=== PATIENT | female | born 1950 | race Caucasian/White ===

== ENCOUNTER 2020-11-05 13:49 | Emergency (ER) | payer MEDICARE, SELFPAY ==
[2020-11-05 14:00] VITALS: BP 154/81; PULSE 80; RESP 20; TEMP 36.4; O2SAT 96
--- NOTE | 2020-11-05 14:37 | ED.GENADULT ---
HPI - General Adult General Chief complaint: Urogenital-Female Stated complaint: Possible UTI Time Seen by Provider: 11/05/20 14:37 Source: patient and RN notes reviewed Mode of arrival: ambulatory Limitations: no limitations History of Present Illness HPI narrative: 70-year-old female presents with urinary complaints for the past 2 days. ?Claritza reports traveling from [place] with several incontinent episodes during car ride due to increasing urinary symptoms. ?Dysuria consists of burning, frequency, and urgency. ?Azo was taken last today at 10:30 without relief. ?Denies fever. ?No significant pelvic pain. ?No vaginal discharge.? No concerns for STDs. Exacerbating factors urinating.? Denies hematuria or vaginal bleeding. ?No flank pain. ?Denies nausea, vomiting, and abdominal pain.? Tolerating liquids well.? Remains active. ?The patient reports she has not been diagnosed with COVID-19. The patient reports she received 2 Pfizer COVID-19 vaccines. The patient reports she is not waiting for the results of a COVID-19 lab test. ?The patient reports he does not have chills, weakness, or fatigue. The patient reports he does not have a new or worsening cough or shortness of breath. ?Denies chest pain. ?The patient reports he does not have any rhinorrhea, congestion, loss of taste or smell, sore throat, and diarrhea. ?Denies recent traveling. ?Denies concerns for COVID-19 or exposures. ?At this time, the patient is not suspected of having COVID-19. ? Some parts of this dictation were generated by voice recognition software and may contain typographical and/or grammatical inaccuracies. Related Data Home Medications Medication Instructions Recorded Confirmed albuterol 90 mcg INHALATION PRN PRN 11/05/20 11/05/20 atorvastatin 40 mg PO DAILY 11/05/20 11/05/20 citalopram 20 mg PO DAILY 11/05/20 11/05/20 fluticasone propionate [Flovent 1 puff INHALATION Q12H 11/05/20 11/05/20 HFA] hydrocodone-acetaminophen 1 tablet PO Q6H PRN 11/05/20 11/05/20 levothyroxine [Synthroid] 112 mcg PO DAILY 11/05/20 11/05/20 lisinopril 10 mg PO DAILY 11/05/20 11/05/20 oxybutynin chloride 5 mg PO DAILY 11/05/20 11/05/20 Allergies Allergy/AdvReac Type Severity Reaction Status Date / Time Sulfa (Sulfonamide Allergy Unknown Verified 11/05/20 14:15 Antibiotics) Review of Systems Review of Systems: Narrative: CONSTITUTIONAL: Denies fever, chills, sweats. EYES: Denies visual changes, redness, discharge. ENT: Denies rhinorrhea, congestion, sore throat, otalgia. CARDIOVASCULAR: Denies chest pain, palpitations, edema. RESPIRATORY: Denies dyspnea, wheezing, cough. GASTROINTESTINAL: Denies abdominal pain, nausea, vomiting, diarrhea. GENITOURINARY: Complains of dysuria (burning, frequency, and urgency). Denies hematuria, abnormal discharge. SKIN: Denies rash or itching. MUSCULOSKELETAL: Denies acute back pain, joint pain, or myalgia. NEUROLOGIC: Denies numbness or focal weakness. PSYCHIATRIC: Denies anxiety or depression. All systems reviewed & are unremarkable except as noted in HPI and below. [facility] Past Medical History Medical History (Updated 11/06/20 @ 00:00 by [facility] [place]) Asthma Hard of hearing Hip fracture, right Hypothyroidism Obesity Surgical History Surgical History (Updated 11/05/20 @ 15:01 by DEANA Go) History of cholecystectomy History of knee surgery Bilateral total knee Hx of CABG Family History Family History (Updated 11/05/20 @ 15:02 by DEANA Go) Father Unknown family medical history Mother Alzheimers disease Social History Social History (Updated 11/05/20 @ 15:03 by DEANA Go) Smoking status: Former smoker Tobacco type: cigarettes Second hand tobacco smoke exposure: No Smoking end date: 05/25/90 Alcohol intake: current Substance use: never Substance use type: does not use Living arrangements: with family Occupation/Education: re
== END 2020-11-05 15:09 | disposition home or self-care (01) ==
PROVIDERS: Emergency Provider Nurse Practitioner Family
DX: R30.0 Dysuria (principal); Z87.891 Personal history of nicotine dependence; J45.909 Unspecified asthma, uncomplicated; E03.9 Hypothyroidism, unspecified; E66.9 Obesity, unspecified; Z68.41 Body mass index [BMI] 40.0-44.9, adult
CPT/HCPCS: 81003; 87077; 87086; 87186; 99213; G0463

== ENCOUNTER 2021-12-18 16:28 | Emergency (ER) | payer MEDICARE, SELFPAY ==
[2021-12-18 16:34] VITALS: BP 140/42; PULSE 75; RESP 16; TEMP 36.6; O2SAT 99
--- NOTE | 2021-12-18 16:58 | ED.FEMALEGU ---
HPI - Female Genitourinary General Chief complaint: Urogenital-Female Stated complaint: Urinary Problem Time Seen by Provider: 12/18/21 16:58 Source: patient Mode of arrival: ambulatory Limitations: no limitations History of Present Illness HPI Narrative: 71 yo F presents with c/o urinary frequency, urgency, dysuria off and on for 3 wks. Pt is here visiting from out of town. No fever/chills. +fatigue. States urine has strong odor. hx of frequent UTI. Has not been on abx for about 3 months. Denies N//v/d. No ABD or back pain. All systems reviewed and negative except as noted above. Related Data Home Medications Medication Instructions Recorded Confirmed atorvastatin 40 mg tablet 80 mg PO DAILY 11/05/20 12/18/21 citalopram 20 mg tablet 20 mg PO DAILY 11/05/20 12/18/21 hydrocodone 7.5 mg-acetaminophen 1 tablet PO Q6H PRN Back Pain 11/05/20 12/18/21 325 mg tablet levothyroxine 112 mcg tablet 200 mcg PO DAILY 11/05/20 12/18/21 (Synthroid) conjugated estrogens 0.625 mg/gram 0.625 mg vaginal DAILY 12/18/21 12/18/21 vaginal cream (Premarin) gabapentin 300 mg capsule 300 mg PO BID 12/18/21 12/18/21 gabapentin 600 mg tablet 600 mg PO HS 12/18/21 12/18/21 lisinopril 10 1 tablet PO DAILY 12/18/21 12/18/21 mg-hydrochlorothiazide 12.5 mg tablet mirabegron 50 mg tablet,extended 50 mg PO DAILY 12/18/21 12/18/21 release 24 hr (Myrbetriq) omeprazole 20 mg capsule,delayed 20 mg PO DAILY 12/18/21 12/18/21 release Allergies Allergy/AdvReac Type Severity Reaction Status Date / Time Sulfa (Sulfonamide Allergy Unknown Verified 12/18/21 16:46 Antibiotics) Review of Systems Review of Systems: CONSTITUTIONAL: Denies fever, chills, or sweats. EYES: Denies visual changes, redness, or discharge. ENT: Denies rhinorrhea, congestion, sore throat, or otalgia. CARDIOVASCULAR: Denies chest pain, palpitations, or edema. RESPIRATORY: Denies cough or dyspnea. GASTROINTESTINAL: Denies abdominal pain, nausea, vomiting, or diarrhea. GENITOURINARY: Reports frequency, urgency dysuria. Denies hematuria. SKIN: Denies rash or itching. MUSCULOSKELETAL: Denies back pain, joint pain, or myalgia. NEUROLOGIC: Denies headache, numbness, or weakness. PSYCHIATRIC: Denies anxiety or depression. All other systems reviewed are negative, except as documented in HPI. [facility] Past Medical History Medical History (Updated 12/18/21 @ 17:10 by Amanda Vera NP) Asthma Hard of hearing Hip fracture, right Hypothyroidism Obesity Surgical History Surgical History (Updated 11/05/20 @ 15:01 by DEANA Go) History of cholecystectomy History of knee surgery Bilateral total knee Hx of CABG Family History Family History (Updated 11/05/20 @ 15:02 by DEANA Go) Father Unknown family medical history Mother Alzheimers disease Social History Social History (Updated 11/05/20 @ 15:03 by DEANA Go) Smoking status: Former smoker Tobacco type: cigarettes Second hand tobacco smoke exposure: No Smoking end date: 05/25/90 Alcohol intake: current Substance use: never Substance use type: does not use Gender identity (if verbalized by the patient): Female Sexual Orientation (if Verbalized by the Patient): Straight or Heterosexual Comments At time of signature, agree with nursing past medical, surgical, social and family history. There is no relevant family history pertinent to the presenting complaint. Exam Narrative: GENERAL: This is a well-nourished, well-developed patient, in no apparent distress. HEAD: normocephalic, atraumatic. EYES: PERRL. Sclera clear/white. Vision is grossly intact. EARS: External ears normal NOSE: External nose normal NECK: Neck supple, non-tender without lymphadenopathy, masses or thyromegaly. CARDIOVASCULAR: Regular rate and rhythm without murmurs, gallops, or rubs. RESPIRATORY: Clear to auscultation. Breath sounds equal bila
== END 2021-12-18 17:11 | disposition home or self-care (01) ==
PROVIDERS: Emergency Provider Nurse Practitioner Family
DX: N39.0 Urinary tract infection, site not specified (principal); Z87.891 Personal history of nicotine dependence; J45.909 Unspecified asthma, uncomplicated; E03.9 Hypothyroidism, unspecified; E66.9 Obesity, unspecified; Z68.38 Body mass index [BMI] 38.0-38.9, adult; Z95.1 Presence of aortocoronary bypass graft
CPT/HCPCS: 81003; 87077; 87086; 87186; 99213; G0463

== ENCOUNTER 2022-05-01 16:25 | Emergency (ER) | payer MEDICARE, SELFPAY ==
[2022-05-01 16:30] VITALS: BP 155/68; PULSE 74; RESP 20; TEMP 36.4; O2SAT 98
--- NOTE | 2022-05-01 16:32 | ED.FEMALEGU ---
HPI - Female Genitourinary General Chief complaint: Urogenital-Female Stated complaint: Urinary Problem Time Seen by Provider: 05/01/22 16:33 Source: patient and RN notes reviewed History of Present Illness HPI Narrative: patient is a 71-year-old female who presents to the Urgent Care with complaints of a lot of pressure and dysuria. Patient states that she was treated for UTI on April 20 with cephalexin in [place] and did not finish the medication. Patient states that she forgot it walk all when she came to [place]. Patient denies any fevers, nausea, vomiting. Denies any abdominal pain. Patient has been taking azo for the last several days. No other acute complaints. Patient aware of the plan of care. Some parts of this dictation were generated by voice recognition software and may contain typographical and/or grammatical inaccuracies. Related Data Home Medications Medication Instructions Recorded Confirmed atorvastatin 40 mg tablet 80 mg PO DAILY 11/05/20 12/18/21 citalopram 20 mg tablet 20 mg PO DAILY 11/05/20 12/18/21 hydrocodone 7.5 mg-acetaminophen 1 tablet PO Q6H PRN Back Pain 11/05/20 12/18/21 325 mg tablet levothyroxine 112 mcg tablet 200 mcg PO DAILY 11/05/20 12/18/21 (Synthroid) conjugated estrogens 0.625 mg/gram 0.625 mg vaginal DAILY 12/18/21 12/18/21 vaginal cream (Premarin) gabapentin 300 mg capsule 300 mg PO BID 12/18/21 12/18/21 gabapentin 600 mg tablet 600 mg PO HS 12/18/21 12/18/21 lisinopril 10 1 tablet PO DAILY 12/18/21 12/18/21 mg-hydrochlorothiazide 12.5 mg tablet mirabegron 50 mg tablet,extended 50 mg PO DAILY 12/18/21 12/18/21 release 24 hr (Myrbetriq) omeprazole 20 mg capsule,delayed 20 mg PO DAILY 12/18/21 12/18/21 release albuterol sulfate 90 mcg/actuation inhalation 05/01/22 aerosol inhaler Allergies Allergy/AdvReac Type Severity Reaction Status Date / Time Sulfa (Sulfonamide Allergy Unknown Verified 12/18/21 16:46 Antibiotics) Review of Systems Review of Systems: CONSTITUTIONAL: Denies fever, chills, or sweats. EYES: Denies visual changes, redness, or discharge. ENT: Denies rhinorrhea, congestion, sore throat, or otalgia. CARDIOVASCULAR: Denies chest pain, palpitations, or edema. RESPIRATORY: Denies cough or dyspnea. GASTROINTESTINAL: Denies abdominal pain, nausea, vomiting, or diarrhea. GENITOURINARY: Reports of suprapubic pressure and dysuria SKIN: Denies rash or itching. MUSCULOSKELETAL: Denies back pain, joint pain, or myalgia. NEUROLOGIC: Denies headache, numbness, or weakness. All other systems reviewed are negative, except as documented in HPI. [facility] Past Medical History Medical History (Updated 05/01/22 @ 16:53 by DEANA Guerra) Asthma Hard of hearing Hip fracture, right Hypothyroidism Obesity Surgical History Surgical History (Updated 11/05/20 @ 15:01 by DEANA Go) History of cholecystectomy History of knee surgery Bilateral total knee Hx of CABG Family History Family History (Updated 11/05/20 @ 15:02 by DEANA Go) Father Unknown family medical history Mother Alzheimers disease Social History Social History (Updated 11/05/20 @ 15:03 by DEANA Go) Smoking status: Former smoker Tobacco type: cigarettes Second hand tobacco smoke exposure: No Smoking end date: 05/25/90 Alcohol intake: current Substance use: never Substance use type: does not use Gender identity (if verbalized by the patient): Female Sexual Orientation (if Verbalized by the Patient): Straight or Heterosexual Comments At the time of my signature, I reviewed and agree with the nursing past medical, surgical, social, and family history. There is no relevant family history pertinent to the patient complaint. Exam Narrative: GENERAL: This is a well-nourished, well-developed patient, in no apparent distress. HEAD: normocephalic, atraumatic. EYES:
== END 2022-05-01 16:58 | disposition home or self-care (01) ==
PROVIDERS: Emergency Provider Nurse Practitioner Family
DX: N39.0 Urinary tract infection, site not specified (principal); Z87.891 Personal history of nicotine dependence; J45.909 Unspecified asthma, uncomplicated; E03.9 Hypothyroidism, unspecified; E66.9 Obesity, unspecified; Z68.41 Body mass index [BMI] 40.0-44.9, adult; Z95.1 Presence of aortocoronary bypass graft
CPT/HCPCS: 81003; 87077; 87086; 87186; 99213; G0463

== ENCOUNTER 2024-09-15 13:15 | Emergency (ER) | payer MEDICARE, SELFPAY ==
[2024-09-15 13:32] VITALS: BP 139/78; PULSE 62; RESP 20; TEMP 36.9; O2SAT 94
--- NOTE | 2024-09-15 14:10 | ED.BACK ---
HPI - Back Pain/Injury General Chief Complaint: Urogenital-Female Stated Complaint: back pain Source: patient, family, RN notes reviewed and old records reviewed Mode of arrival: ambulatory Limitations: no limitations History of Present Illness MD elicited complaint: back pain Related Data Home Medications ?Medication ?Instructions ?Recorded ?Confirmed ?Last Taken ?Type atorvastatin 40 mg tablet 80 mg PO DAILY 11/05/20 09/15/24 Unknown History citalopram 20 mg tablet 20 mg PO DAILY 11/05/20 12/18/21 Unknown History hydrocodone 7.5 mg-acetaminophen 1 tablet PO Q6H PRN Back Pain 11/05/20 12/18/21 Unknown History 325 mg tablet levothyroxine 112 mcg tablet 200 mcg PO DAILY 11/05/20 09/15/24 Unknown History (Synthroid) conjugated estrogens 0.625 mg/gram 0.625 mg vaginal DAILY 12/18/21 12/18/21 Unknown History vaginal cream (Premarin) gabapentin 300 mg capsule 300 mg PO BID 12/18/21 12/18/21 Unknown History gabapentin 600 mg tablet 600 mg PO HS 12/18/21 09/15/24 Unknown History mirabegron 50 mg tablet,extended 50 mg PO DAILY 12/18/21 12/18/21 Unknown History release 24 hr (Myrbetriq) omeprazole 20 mg capsule,delayed 20 mg PO DAILY 12/18/21 12/18/21 Unknown History release atorvastatin 80 mg tablet mg 09/15/24 Unknown History fluticasone fur. 100 mcg-umeclid inhalation 09/15/24 Unknown History 62.5 mcg-vilant 25 mcg inhalat.powder (Trelegy Ellipta) fluticasone propionate 50 intranasal 09/15/24 Unknown History mcg/actuation nasal spray,suspension hydroxychloroquine 200 mg tablet mg PO 09/15/24 Unknown History levothyroxine 200 mcg tablet mcg 09/15/24 Unknown History losartan 50 mg tablet mg 09/15/24 Unknown History meclizine 25 mg tablet mg 09/15/24 Unknown History Allergies Allergy/AdvReac Type Severity Reaction Status Date / Time Sulfa (Sulfonamide Allergy Unknown Verified 09/15/24 13:29 Antibiotics) [facility] Past Medical History Medical History (Updated 09/15/24 @ 14:36 by Nae Magallanes NP) Hip fracture, right Obesity Hypothyroidism Hard of hearing Asthma Surgical History Surgical History (Updated 11/05/20 @ 15:01 by DEANA Go) History of cholecystectomy History of knee surgery Bilateral total knee Hx of CABG Family History Family History (Updated 11/05/20 @ 15:02 by DEANA Go) Father Unknown family medical history Mother Alzheimers disease Social History Social History (Updated 11/05/20 @ 15:03 by DEANA Go) Smoking status: Former smoker Tobacco type: cigarettes Second hand tobacco smoke exposure: No Smoking end date: 05/25/90 Alcohol intake: current Substance use: never Substance use type: does not use Living arrangements: with family Occupation/Education: retired Gender identity (if verbalized by the patient): Female Sexual Orientation (if Verbalized by the Patient): Straight or Heterosexual Course Vital Signs Vital signs: Vital Signs Temperature 36.9 C 09/15/24 13:32 Pulse Rate 62 09/15/24 13:32 Respiratory Rate 20 09/15/24 13:32 Blood Pressure 139/78 09/15/24 13:32 Pulse Oximetry 94 09/15/24 13:32 Oxygen Delivery Room Air 09/15/24 13:32 Temperature 36.9 C 09/15/24 13:32 Pulse Rate 62 09/15/24 13:32 Respiratory Rate 20 09/15/24 13:32 Blood Pressure 139/78 09/15/24 13:32 Pulse Oximetry 94 09/15/24 13:32 Oxygen Delivery Room Air 09/15/24 13:32 Discharge Plan Discharge Clinical Impression: Urinary tract infection Qualifiers: Urinary tract infection type: site unspecified Hematuria presence: with hematuria Qualified Code(s): N39.0 - Urinary tract infection, site not specified Back pain Qualifiers: Back pain location: low back pain Chronicity: unspecified Back pain laterality: bilateral Sciatica presence: without sciatica Qualified Code(s): M54.50 - Low back pain, unspecified Patient Disposition: Home Condition: Stable Instructions: Antibiotic Form, Urinary Tract Infection in Women (ED), Back Pain (ED) Additional Instructions: Increase fluids especially cranberry juice and water Avoid caffeine and carbonated beverages Antibiotic as directed Tylenol/ibuprofen for pain or fever Follow-up with her primary care provider if further problems or concerns Recheck if you have fever over 101, nausea and vomiting. Patient reports chronic history of back pain Pain medication as prescribed which patient takes routinely for chronic back pain Muscle relaxant as prescribed do drive while taking If your symptoms persist, change or worsen significantly before you can contact your personal physician then please, without delay, go to the emergency department for further evaluation. Follow-up with PCP in 7-10 days or sooner if needed Follow up with PCP soon in regards to your blood pressure which is elevated above threshold for referral. Blood pressure above 120/80 may indicate pre-hypertension. 139/78 Patient Language: Jordanian Prescriptions: New cefadroxil 500 mg capsule 500 mg PO BID Qty: 14 0RF cyclobenzaprine 5 mg tablet 5 mg PO TID PRN (Reason: muscle spasm) Qty: 20 0RF Rx Instructions: can not drive while taking this medication No Action losartan 50 mg tablet atorvastatin 80 mg tablet meclizine 25 mg tablet levothyroxine 200 mcg tablet hydroxychloroquine 200 mg tablet PO fluticasone propionate 50 mcg/actuation spray,suspension INTRANASAL Trelegy Ellipta 100-62.5-25 mcg blister with device INHALATION hydrocodone-acetaminophen 7.5-325 mg Tablet 1 tablet PO Q6H PRN (Reason: Back Pain) atorvastatin 40 mg Tablet 80 mg PO DAILY citalopram 20 mg Tablet 20 mg PO DAILY levothyroxine [Synthroid] 112 mcg Tablet 200 mcg PO DAILY gabapentin 600 mg Tablet 600 mg PO HS Premarin 0.625 mg/gram Cream 0.625 mg VAGINAL DAILY Rx Instructions: off 5 days; repeat cycle gabapentin 300 mg Capsule 300 mg PO BID omeprazole 20 mg Capsule,Delayed Release(Dr/Ec) 20 mg PO DAILY Myrbetriq 50 mg Tablet Extended Release 24 Hr 50 mg PO DAILY Follow-up/Referrals: UNKNOWN,DOCTOR [Primary Care Provider] - Quality [place] Coma Scale Eyes: Open Verbal: Oriented and Alert Motor: Follows Commands [place] Coma Total Score: 15
[2024-09-15 14:15] LABS: EDUAAPPEAR Cloudy; EDUABILI Negative (Negative); EDUABLOOD 1+ (Negative); EDUACOLOR1 Yellow; EDUAGLUCOSE Negative (Negative); EDUAKETONE Negative (Negative); EDUALEUKO 3+ (Negative); EDUANITRATE Positive (Negative); EDUAPROTEIN 1+ (Negative); EDUAUROBILI 0.2
--- OUTSIDE RECORDS SUMMARY | 2024-09-15 14:19 | XMS_ITS | Clinical Summary ---
Author Organization [facility] Address [address] [place] [address] Care Team Providers Care Assistant Reading Teacher Name Role Phone Mikayla Macario MD Primary Care Provider [phone] Allergies Active Allergy Reactions Criticality Noted Date Comments Sulfa (Sulfonamide Antibiotics) Other (See comments) Reaction: Unspec childhd rx, Sulfanilamide Rash Reaction: Rash, Medications cholecalciferol (VITAMIN D3) 2,000 unit tablet take 1 Tablet by oral route every day 0 0 03/09/2013 Active aspirin 325 mg EC tablet take 1 tablet by oral route every day 14 0 03/09/2013 Active omeprazole (PriLOSEC) 20 mg capsule take 1 capsule (20MG) by oral route every day before a meal 0 02/16/2012 Active meclizine (ANTIVERT) 25 mg tablet take 1 tablet (25MG) by oral route 3 times every day as needed 0 02/16/2012 Active HYDROcodone-deni taminophen (VICODIN) 7.5-750 mg per tablet take 1 tablet by oral route every 4 - 6 hours as needed for pain not to exceed 5 tablets in 24hrs 0 02/16/2012 Active citalopram (CeleXA) 20 mg tablet take 1 tablet (20MG) by oral route every day 0 02/16/2012 Active levothyroxine sodium (TIROSINT) 125 mcg capsule take 1 capsule (125MCG) by oral route every day 0 02/16/2012 Active albuterol HFA (PROVENTIL HFA,VENTOLIN HFA,PROAIR HFA) 90 mcg/actuation inhaler 08/01/2018 Active MYRBETRIQ 50 mg tablet extended release 24 hr 09/20/2018 Activ e cyanocobalamin, vitamin B-12, (VITAMIN B-12) 1,000 mcg tablet extended release Take by mouth Active Trelegy Ellipta 100-62.5-25 mcg inhaler 12/19/2022 Active atorvastatin (LIPITOR) 80 mg tablet 11/17/2022 Active lisinopril-hydr oCHLOROthiazide (ZESTORETIC) 10-12.5 mg per tablet 11/23/2022 Active Active Problems Problem Noted Date Diagnosed Date Injury of right shoulder 02/24/2018 Surgical History Surgery Date Site/Laterality Comments CHOLECYSTECTOMY Cholecystectomy KNEE ARTHROPLASTY Right Knee replacement KNEE ARTHROSCOPY 05/25/2012 - 05/24/2013 Left Arthroscopy knee CARDIAC SURGERY TOTAL HIP ARTHROPLASTY 05/25/2012 - 05/24/2013 Right Medical History Medical History Date Comments Hx Other Medical pooe circulatio n Hx Other Medical hiatal hernia Hx Other Medical heart bypass Disorder of thyroid Thyroid dise ase Depression Depression Asthma Asthma Hypertension Hypertension Hyperlipidemia Hyperlipidemia Hiatal hernia History of stomach ulcers Poor circulation Social History Tobacco Use Types Packs/Day Years Used Date Smoking Tobacco: Never Alcohol Use Standard Drinks/Week Comments No 0 (1 standard drink = 0.6 oz pur e alcohol) Comments No Sex and Gender Information Value Date Recorded Sex Assigned at Not on file 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 Gender Identity Not on file Sexual Orientation Not on file Obstetrics History Last Filed Vital Signs Vital Sign Reading Time Taken Comments Blood Pressure 138/74 01/16/2023 9:53 AM CDT Pulse 78 01/16/2023 9:53 AM CDT Temperature 36.6 C (97.8 F) 01/16/2023 9:53 AM CDT Respiratory Rate 18 01/16/2023 9:53 AM CDT Oxygen Saturation 96% 01/16/2023 9:53 AM CDT Inhaled Oxygen Concentration - - Weight 110.7 kg (244 lb) 01/16/2023 9:53 AM CDT Height 167.6 cm (5' 5.98 ) 01/16/2023 9:53 AM CD T Body Mass Index 39.41 01/16/2023 9:53 AM CDT Plan of Treatment Health Maintenance Due Date Last Done Comments Depression Screening 1950 Fall Risk Assessment 1950 Hepatitis C Screening 1950 Osteoporosis Screening-Bone Density Scan 1950 DTaP/Tdap/Td Vaccine (1 - Tdap) 10/31/1959 Hepatitis B Screening 1966 Pneumococcal vaccine 65+ (1 of 1 - PCV) 1998 Zoster Vaccine (1 of 2) 1998 Well Visit 65+ 2013 Colon Cancer Screening-Colonoscopy 03/07/20232012 Influenza Vaccine (#1) 2024 Colon Cancer Screening-CT Colonography Discontinued Colon Cancer Screening-DNA Stool Discontinued 03/07/20 13 Colon Cancer Screening-FIT Discontinued 03/07/2013 Colon Cancer Screening-Sigmoidoscopy Discontinued 02/22 Breast Cancer Screening-Mammogram Discontinued 015 Procedures Procedure Name Priority Date/Time Associated Diagnosis Comments DIAGNOSTIC MAMMOGRAM BILATERAL W TAN Routine 08/02/2014 7:49 AM CDT COLONOSCOPY 03/07/2013 12:00 AM CDT from Last 3 Months or Most Recently Relevant to Health Maintenance Results * DIAGNOSTIC MAMMOGRAM BILATERAL W TAN (08/02/2014 7:49 AM CDT) Anatomical Region Laterality Modality Breast Bilateral Mammography 08/02/2014 7:49 AM CDT Narrative 08/02/2014 11:04 PM CDT Acc#: [id number] [facility] 0047 - Screening Mamm W Tan Bi DATE OF EXAM: Aug 02 2014 7:49AM DIAGNOSIS: SCREEN MAMMOGRAPHY NEC CLINICAL HISTORY: SCREENING RESULT: \ EXAM: DIGITAL BILATERAL SCREENING MAMMOGRAM WITH DIGITAL TOMOSYNTHESIS DATE: 08/02/2013 CLINICAL HISTORY: Screening in an asymptomatic patient with no personal or family history of breast cancer TECHNIQUE: Bilateral full field digital mammography and digital tomosynthesis were performed in the CC and MLO projections. Comparison was made on Clindesk to prior screening mammograms performed at [facility] on 01/15/2012 and 11/09/2008. CAD was utilized. FINDINGS: Scattered fibroglandular densities are again seen in both breasts, predominantly in the retroareolar regions. There has been some interval involution of the breast parenchyma compared to the prior exams. An intramammary lymph node is again seen in the deep upper outer left breast. Left axillary lymph nodes are benign in appearance. There is no new nodule, mass, area of architectural distortion or suspicious microcalcification. IMPRESSION: \ BI-RADS CATEGORY 1, NEGATIVE MAMMOGRAM. RECOMMEND YEARLY BILATERAL SCREENING MAMMOGRAM. TECHNOLOGIST: LEONIE ELDER, TECHNOLOGIST MEDICAL IMAGING MUSIC LIBRARY ASSISTANT: TR6 TRANSCRIBE DATE/TIME: Aug 02 2014 10:05P RADIOLOGIST: SURJIT ALBERTO M.D. READ ON: Aug 02 2014 5:07P ORDERING DR: MARIANO ALBA M.D. THIS DOCUMENT HAS BEEN ELECTRONICALLY SIGNED BY: SURJIT ALBERTO M.D. ON: Aug 02 2014 11:04P MUSIC LIBRARY ASSISTANT: TR6 TRANSCRIBE DATE/TIME: Aug 02 2014 10:05P RADIOLOGIST: SURJIT ALBERTO M.D. READ ON: Aug 02 2014 5:07P ORDERING DR: MARIANO ALBA M.D. THIS DOCUMENT HAS BEEN ELECTRONICALLY SIGNED BY: SURJIT ALBERTO M.D. ON: Aug 02 2014 11:04P Attending: , Requesting: MARIANO ALBA Requesting Fax: -- Attending Fax: -- Attending ID: Requesting ID: [id number] Report To 1 ID: Report To 1 Name: , Report To 1 FAX: -- Report To 2 ID: Report To 2 Name: , Report To 2 FAX: -- NextGen Order #: Procedure Note Provider, MD Anita - 09/14/2016 Acc#: [id number] [facility] 0047 - Screening Mamm W Tan Bi DATE OF EXAM: Aug 02 2014 7:49AM DIAGNOSIS: SCREEN MAMMOGRAPHY NEC CLINICAL HISTORY: SCREENING RESULT: \ EXAM: DIGITAL BILATERAL SCREENING MAMMOGRAM WITH DIGITAL TOMOSYNTHESIS DATE: 08/02/2013 CLINICAL HISTORY: Screening in an asymptomatic patient with no personal or family history of breast cancer TECHNIQUE: Bilateral full field digital mammography and digital tomosynthesis were performed in the CC and MLO projections. Comparison was made on Clindesk to prior screening mammograms performed at [facility] on 01/15/2012 and 11/09/2008. CAD was utilized. FINDINGS: Scattered fibroglandular densities are again seen in both breasts, predominantly in the retroareolar regions. There has been some interval involution of the breast parenchyma compared to the prior exams. An intramammary lymph node is again seen in the deep upper outer left breast. Left axillary lymph nodes are benign in appearance. There is no new nodule, mass, area of architectural distortion or suspicious microcalcification. IMPRESSION: \ BI-RADS CATEGORY 1, NEGATIVE MAMMOGRAM. RECOMMEND YEARLY BILATERAL SCREENING MAMMOGRAM. TECHNOLOGIST: LEONIE ELDER, TECHNOLOGIST MEDICAL IMAGING MUSIC LIBRARY ASSISTANT: TR6 TRANSCRIBE DATE/TIME: Aug 02 2014 10:05P RADIOLOGIST: SURJIT ALBERTO M.D. READ ON: Aug 02 2014 5:07P ORDERING DR: MARIANO ALBA M.D. THIS DOCUMENT HAS BEEN ELECTRONICALLY SIGNED BY: SURJIT ALBERTO M.D. ON: Aug 02 2014 11:04P MUSIC LIBRARY ASSISTANT: TR6 TRANSCRIBE DATE/TIME: Aug 02 2014 10:05P RADIOLOGIST: SURJIT ALBERTO M.D. READ ON: Aug 02 2014 5:07P ORDERING DR: MARIANO ALBA M.D. THIS DOCUMENT HAS BEEN ELECTRONICALLY SIGNED BY: SURJIT ALBERTO M.D. ON: Aug 02 2014 11:04P Attending: , Requesting: MARIANO ALBA Requesting Fax: -- Attending Fax: -- Attending ID: Requesting ID: [id number] Report To 1 ID: Report To 1 Name: , Report To 1 FAX: -- Report To 2 ID: Report To 2 Name: , Report To 2 FAX: -- NextGen Order #: Historical Provider MD KATE MAMMO PROCEDURES Destiney l Result * COLONOSCOPY (03/07/2013 12:00 AM CDT) Anatomical Region Laterality Modality Other Narrative 03/07/2013 12:00 AM CDT Ordered by an unspecified provider. Procedure Note ProviderAnita MD - 03/07/2013 12:00 AM CDT PROCEDURE REPORT Patient: CLARITZA ROMERO Account: [id number] Room No: : 1950 Patient Type: [facility] Attend.: Prakash Mayorga M.D. Admit Date: 03/07/2013 Dict.: Prakash Mayorga M.D. Disch. Date: NAME OF PROCEDURE: Colonoscopy. DATE OF PROCEDURE: 03/07/13. HISTORY: 62-year-old female with nausea and vomiting, as well as rectal bleeding. PHYSICAL EXAMINATION: Obese female. Lungs are clear. Cardiovascularexam is unremarkable PROCEDURE: Colonoscopy was performed with the Olympus video endoscope.On digital exam, she has grade 4 hemorrhoids. We inserted the endoscope and advanced it to the cecum. The colon was well prepped and visualized.We carefully searched the colonic mucosa and could find no evidence of inflammatory or neoplastic change anywhere through the length of thebowel. The patient tolerated the procedure without difficulty. POSTOPERATIVE DIAGNOSIS: Hemorrhoidal disease, otherwise normal. Prakash Mayorga M.D. / TD: 03/07/2013 12:10 CC: Mariano Alba M.D. Authenticated by Prakash Mayorga MD On 03/08/2013 08:36:25 AM Historical Provider ENDOSCOPY PROCEDURES Destiney l Result from Last 3 Months or Most Recently Relevant to Health Maintenance Insurance [employer] CHO[employer] MEDICARE PPO [employer] MEDICARE PPO Care Teams Assistant Reading Teacher Relationship Specialty Start Date End Date Mikayla Macario MD [address] [place] [address] PCP - General Family Medicine 02/23/18
--- OUTSIDE RECORDS SUMMARY | 2024-09-15 14:19 | XMS_ITS | Referral Summary ---
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 Gender Identity Not on file Sexual Orientation Not on file Last Filed Vital Signs Vital Sign Reading [...] 01/16/2023 9:53 AM CDT Plan of Treatment Not on file Procedures Procedure Name Priority Date/Time Associated Diagnosis Comments DIAGNOSTIC MAMMOGRAM BILATERAL W TAN Routine 08/02/2014 7:49 AM CDT COLONOSCOPY 03/07/2013 12:00 AM CDT from Last 3 Months or Most Recently Relevant to Health Maintenance Results * DIAGNOSTIC MAMMOGRAM BILATERAL W TAN (08/02/2014 7:49 AM CDT) Anatomical Region Laterality Modality Breast Bilateral Mammography 08/02/2014 7:49 AM CDT Narrative 08/02/2014 11:04 PM CDT Acc#: [id number] [facility] [id number] - Screening Mamm W Tan Bi [...] Clindesk to prior screening mammograms performed at [facility] on 01/15/2012 and 11/09/2008. CAD was [...] MAMMOGRAM. TECHNOLOGIST: LEONIE ELDER, TECHNOLOGIST MEDICAL IMAGING VITREO RETINAL SURGEON: TR6 TRANSCRIBE DATE/TIME: Aug 02 2014 10:05P RADIOLOGIST: SURJIT ALBERTO M.D. READ ON: Aug 02 2014 5:07P ORDERING DR: MARIANO ALBA M.D. THIS DOCUMENT HAS BEEN ELECTRONICALLY SIGNED BY: SURJIT ALBERTO M.D. ON: Aug 02 2014 11:04P VITREO RETINAL SURGEON: TR6 TRANSCRIBE DATE/TIME: Aug 02 2014 10:05P RADIOLOGIST: SURJIT ALBERTO M.D. READ ON: Aug 02 2014 5:07P ORDERING DR: MARIANO ALBA M.D. THIS DOCUMENT HAS BEEN ELECTRONICALLY SIGNED BY: SURJIT ALBERTO M.D. ON: Aug 02 2014 11:04P Attending: , Requesting: MARIANO ALBA Requesting Fax: -- Attending Fax: -- Attending ID: Requesting ID: [id number] Report To 1 ID: Report To 1 Name: , Report To 1 FAX: -- Report To 2 ID: Report To 2 Name: , Report To 2 FAX: -- NextGen Order #: Procedure Note Provider, MD Anita - 09/14/2016 Acc#: [id number] [facility] 0047 - Screening Mamm W Tan [...] Clindesk to prior screening mammograms performed at [facility] on 01/15/2012 and 11/09/2008. CAD was [...] MAMMOGRAM. TECHNOLOGIST: LEONIE ELDER, TECHNOLOGIST MEDICAL IMAGING VITREO RETINAL SURGEON: TR6 TRANSCRIBE DATE/TIME: Aug 02 2014 10:05P RADIOLOGIST: SURJIT ALBERTO M.D. READ ON: Aug 02 2014 5:07P ORDERING DR: MARIANO ALBA M.D. THIS DOCUMENT HAS BEEN ELECTRONICALLY SIGNED BY: SURJIT ALBERTO M.D. ON: Aug 02 2014 11:04P VITREO RETINAL SURGEON: TR6 TRANSCRIBE DATE/TIME: Aug 02 2014 10:05P RADIOLOGIST: SURJIT ALBERTO M.D. READ ON: Aug 02 2014 5:07P ORDERING DR: MARIANO ALBA M.D. THIS DOCUMENT HAS BEEN ELECTRONICALLY SIGNED BY: SURJIT ALBERTO M.D. ON: Aug 02 2014 11:04P Attending: , Requesting: MARIANO ALBA Requesting Fax: -- Attending Fax: -- Attending ID: Requesting ID: [id number] Report To 1 ID: Report To 1 Name: , Report To 1 FAX: -- Report To 2 ID: Report To 2 Name: , Report To 2 FAX: -- NextGen Order #: us Historical Provider MD KATE MAMMO PROCEDURES Destiney l Result * COLONOSCOPY (03/07/2013 12:00 AM CDT) Anatomical Region Laterality Modality Other Narrative 03/07/2013 12:00 AM CDT Ordered by an unspecified provider. Procedure Note ProviderAnita MD - 03/07/2013 12:00 AM CDT PROCEDURE REPORT Patient: CLARITZA ROMERO. Account: [id number] Room No: : 1950 Patient Type: SDS Attend.: Prakash Mayorga M.D. Admit Date: 03/07/2013 [...] Hemorrhoidal disease, otherwise normal. Prakash Mayorga M.D. DR/ TD: 03/07/2013 12:10 CC: Mariano Alba M.D. Authenticated by Prakash Mayorga MD On 03/08/2013 08:36:25 AM us Historical Provider ENDOSCOPY PROCEDURES Destiney l Result from Last 3 Months or Most Recently Relevant to Health Maintenance Insurance [employer] CHOICE MEDICARE PPO [employer] MED[employer]ARE PPO Care Teams Critical Care Unit Nurse Relationship Specialty Start Date End Date Mikayla Macario MD [address] [place] [address] PCP - General Family Medicine 02/23/18
--- OUTSIDE RECORDS SUMMARY | 2024-09-15 14:20 | XMS_ITS | Data Portability ---
Author Organization [facility] OR/OP Address [address] [place], [place] Care Team Providers Care Chief Merchandising Officer Name Role Phone CRYS LAZO Referring Provider [phone] CRYS LAZO Primary Care Provider Assessment Encounter Date Assessment Date Assessment LastModified by Organization Details LastModified Time 09/19/2021 09/19/2021 I discussed with the patient recurrent urinary tract infections. I have continued to encourage her to do timed voiding and Crede maneuvers to ensure bladder emptying. She will remain on Myrbetriq. I have started her on vaginal estrogens. She was also started on daily cranberry supplements. She will return in 3 months. If she continues to have recurrent infections we will consider initiation of Hiprex and vitamin C. [email or web address] Not available 09/19/2021 17:08:07 Plan of Treatment Reminders Order Date Submit Date Provider Last Modified By Organization Details Last Modified Time Details Appointments None recorded. Lab urinalysis , dipstick 2021 022 [facility], [address] [facility], [address], [place], [place], , 16:59:06 Referral None recorded. Procedures None recorded. Surgeries None recorded. Imaging None recorded. Medication Orders Premarin 0.625 mg/gram vaginal cream 2021 022 [id number], [address] , [place], [place], [phone], 10:47:38 Patient TargetsNo targets recorded. Patient Instructions Encounter Date Encounter Id Patient Instructions Last Modified By Organization Details Last Modified Time 09/19/2021 [id number] atrophic vaginitis: care instructions [email or web address] Not available 09/19/2021 16:59:06 frequent urination: care instructions [email or web address] Not available 09/19/2021 16:59:06 Reason for Referral None Reported. Results Created Date Observation Date Name Description Value Unit Range Abnormal Flag Note LastModifiedBy Organization Detail LastModifiedTime 09/20/19 22 09/19/2021 urina lysis , dipst ick Color yellow Not Available [facility] [address], , 09/19/2021 14:57:20 09/20/19 22 09/19/2021 urina lysis , dipst ick Clarity clear Not Available [facility] [address], , 09/19/2021 14:57:20 09/20/19 22 09/19/2021 urina lysis , dipst ick Glucose negati ve Not Available [facility] [address], , 09/19/2021 14:57:20 09/20/19 22 09/19/2021 urina lysis , dipst ick Bilirubin negati ve Not Available [facility] [address], , 09/19/2021 14:57:20 09/20/19 22 09/19/2021 urina lysis , dipst ick Ketones negati ve Not Available [facility] [address], , 09/19/2021 14:57:20 09/20/19 22 09/19/2021 urina lysis , dipst ick Specific [place] 1.020 Not Available [facility] [address] [facility] [address], [place], [place], , 09/19/2021 14:57:20 09/20/19 22 09/19/2021 urina lysis , dipst ick Blood trace Not Available [facility] [address] [facility] [address], [place], [place], , 09/19/2021 14:57:20 09/20/19 22 09/19/2021 urina lysis , dipst ick pH 5.5 Not Available [facility] [address] [facility] [address], [place], [place], , 09/19/2021 14:57:20 09/20/19 22 09/19/2021 urina lysis , dipst ick Protein negati ve Not Available [facility] [address], [place], [place], , 09/19/2021 14:57:20 09/20/19 22 09/19/2021 urina lysis , dipst ick Urobilinogen 0.2 Not Available [facility] [address], [place], [place], , 09/19/2021 14:57:20 09/20/19 22 09/19/2021 urina lysis , dipst ick Nitrate positi ve Not Available [facility] [address] [facility] [address], [place], [place], , 09/19/2021 14:57:20 09/20/19 22 09/19/2021 urina lysis , dipst ick Leukocytes modera te Not Available [facility] [address] [facility] [address] [facility], [place], [place], , 09/19/2021 14:57:20 Result Notes None recorded. Procedures Surgical History Date Name Laterality Status Provider Name and Address Organization Details Recorded Time 05/25/19 19 Colonoscopy with biopsy completed Not Available Health Note 12/31/2021 10:47:33 03/24/19 95 Coronary artery bypass/reop completed Not Available Health Note 12/31/2021 10:47:33 05/25/18 59 Removal of tonsils completed Not Available Health Note 12/31/2021 10:47:33 Imaging Results None recorded. Procedure Notes None recorded. Medical Equipment None Reported. Allergies Allergen ID Allergen Name Allergen Category Reaction Reaction Severity Criticality Documentation Date Start Date Code Code System Note Provider Name and Address Organization Details Recorded Time 85502 Substance with sulfonami de structure and antibacte rial mechanism of action (substanc e) medicatio n other Not available Not available 09/17/2021 03564 8003 SNOMED don't remem ronny years ago Not Available Not Available Not Available Medications Name Sig Start Date Stop Date Status Note LastModified by Organization Details LastModified Time atorvastati n 80 mg tablet 80mg 1/day active Not Available Not Available No t Available meloxicam 15 mg tablet active Not Available Not Available Not Available prednisone 20 mg tablet 09/19 completed Not Available Not Available Not Available ciprofloxac in 500 mg tablet active Not Available Not Available Not Available citalopram 20 mg tablet 20mg 2/day active Not Available Not Available No t Available meclizine 25 mg tablet 25 mg 2/day active Not Available Not Available No t Available hydrocodone 7.5 mg-acetamin ophen 325 mg tablet active Not Available Not Available No t Available cephalexin 500 mg capsule 09/19 completed Not Available Not Available Not Available gabapentin 300 mg capsule active Not Available Not Available Not Available omeprazole 20 mg capsule,del ayed release active Not Available Not Available Not Available levothyroxi ne 200 mcg tablet active Not Available Not Available Not Available gabapentin 100 mg capsule active Not Available Not Available Not Available lisinopril 10 mg-hydrochl orothiazide 12.5 mg tablet active Not Available Not Available Not Available albuterol sulfate HFA 90 mcg/actuati on aerosol inhaler Don't know 3/day active Not Available Not Available No t Available Premarin 0.625 mg/gram vaginal cream Insert 0.5 g 3 times a week by vaginal route. active Not Available Not Available No t Available hydrocodone 10 mg-acetamin ophen 300 mg tablet Hydrocodo ne 4/day active Not Available Not Available No t Available nitrofurant oin monohydrate /macrocryst als 100 mg capsule active Not Available Not Available Not Available Flovent HFA 110 mcg/actuati on aerosol inhaler Dont know 2/day active Not Available Not Available No t Available Flovent HFA 220 mcg/actuati on aerosol inhaler active Not Available Not Available Not Available levothyroxi ne 200mcg 1/day active Not Available Not Available No t Available gabapentin Gabapenti n 3/day active Not Available Not Available No t Available Symbicort 160 mcg-4.5 mcg/actuati on HFA aerosol inhaler active Not Available Not Available Not Available Myrbetriq 25 mg tablet,exte nded release 25mg 1/day active Not Available Not Available No t Available Myrbetriq 50 mg tablet,exte nded release active Not Available Not Available Not Available aclidinium 400 mcg-formote rol 12 mcg/actuati on breath activatd inhaler Don't know 1/day active Not Available Not Available No t Available Vitals Date Recorded Body weight Provider Name an d Address Organization Details Last Updated DateTime 09/19/2021 666033.95 g [facility] 09/19/2021 14:56:56 Date Recorded Body height Body mass index (BMI) Provider Name and Address Organization Details Last Updated DateTime 09/19/2021 167.64 cm 39.2 kg/m2 Not Available Health Note 14:33:51 Social History Question Answer Notes LastModified by Organizat ion Details LastModified Time Tobacco Smoking Status Former Smoker Not Available Health Note 09/17/2021 18:24:14 Do You Have An Advance Directive? No [email or web address] Information n ot available 09/17/2021 What Is Your Level Of Alcohol Consumption? NONE [email or web address] Information not available 09/17/2021 Which Illicit Or Recreational Drugs Have You Used? No [email or web address] Information not available 09/17/2021 What Was The Date Of Your Most Recent Tobacco Screening? 09/19/2021 [email or web address] Information not available 09/17/2021 How Much Tobacco Do You Smoke? 2 PPD [email or web address] Information not available 09/17/2021 How Many Years Have You Smoked Tobacco? 35 [email or web address] Information not available 09/17/2021 Sex: Unknown Functional Status None recorded. Mental Status None recorded. Family History Relationship Description Onset Age of this Age Resolved Age Notes LastModified by Organization Details LastModified Time Sister Kidney stone [email or web address] Not availa ble 09/17/2021 18:24:11 Sister Family history of malignant neoplasm of ovary [email or web address] Not available 2021 18:24:11 Medical History Condition Response Urinary Tract Infections Y Diabetes N Other Y Bleeding Disorder N Thyroid Disease Y Asthma/Emphysema Y Blood Transfusions N High Blood Pressure Y Enlarged Prostate N Tuberculosis N Hepatitis/Jaundice N Cancer N Diverticulitis Y Stroke N Crohn's Disease N Kidney Disease/Stones N Psychiatric Disorder/Depression N Rheumatic Heart Disease N Ulcerative Colitis N Sickle Cell Disease N Heart Disease Y Sexually Transmitted Diseases N Gynecological HistoryNo gynecological history recorded. Obstetrics History GPAL:G 0 P 0 0 0 0 Immunizations Vaccine Type Date Status Note Provider Nam e and Address Organization Details Recorded Time pneumococcal, unspecified formulation 1 completed Not Available Health Note 09/17/2021 18:24:17 influenza, unspecified formulation 1 completed Not Available Health Note 09/17/2021 18:24:17 Past Encounters Encounter ID Performer Location Encounter Start Date Encounter Closed Date Diagnosis/Indication Diagnosis SNOMED-CT Code Diagnosis ICD10 Code Diagnosis Note [id number] Jeb Smith MD [place] [id number] 9 09/19/2021 14:31:45 09/19/2021 15:10:19 Atrophic vaginitis 48622619 N95.2 Recurrent urinary tract infection 209707088 N39.0 Increased frequency of urination 452297018 R35.0 Health Concerns Section Related Observation LastModified by Organization Detai ls LastModified Time None Recorded Concern Status LastModified by Organization Details LastModified Time None Recorded Advance Directives Directive N: Payers Encounter Date Sequence Insurance Name Policy Number Policy Pan Covered Member ID Pan Member ID Guarantor Name 09/19/2021 1 [employer] (MEDICARE REPLACEMENT/ ADVANTAGE - PPO) Claritza Zhang [id number] Claritza Zhang Notes Date Note Type Note Provider Name a nd Address Organization Details Recorded Time 09/19/2021 text/html Chief Complaint:UTI / Urinary Tract Patient presents today for discussion regarding recurrent urinary tract infections. Patient does have a long-standing history of urinary tract infections. She has previously undergone evaluation which was essentially unremarkable. She has been managed with timed voiding, double voiding, and Crede maneuvers. She did recently have severe Covid Infection. She is now on oxygen and requiring a walker at times. Following her infection she has had recurrent urinary tract infections. She has had 3 or 4 UTIs since being diagnosed and treated for Covid. Her most recent UTI was E. coli. She denies constipation. She does take Myrbetriq for urinary frequency and has been taking it for about 5 years now. Screening / Questionnaire: AUA: Score: 24 Severe Mark Smith MD [address] , [place], [address], [facility] 09/19/2021 17:08:31 OBGyn Episode No OBEpisode recorded.
--- OUTSIDE RECORDS SUMMARY | 2024-09-15 14:22 | XMS_ITS ---
Author Organization [facility] Address [address] [facility] [address] [place] [address] Care Team Providers Care Quantitative Developer Name Role Phone Arjun Anthony DO Primary Care Provider Emily Hansen Unavailable Allergies Allergen (clinical drug ingredient) Drug/Non Drug Allergy documented on EMR Reaction Allergy Type Onset Date Status Substance with sulfonamide structure and antibacterial mechanism of action (substance) Sulfa Antibiotics Unknown Drug Allergy Active Results Component Value Reference Range Notes Urinalysis Reviewed date:06/16/2024 02:06:17 PM Interpretation:Abnormal Performing Lab: Notes/Report: Abnormal REVA 3+ NEG - NEG reva/ul NIT + NEG - NEG URO 1+ NORM - NORM mg/dl PRO trace: 15 mg/dL NEG - NEG mg/dl pH 6.0 5 - 7.01 BLO trace: 10 ruben/uL NEG - NEG Ruben/ul SG 1.020 1.000 - 1.010 KET - NEG - NEG mg/dl MARTHA 2+ NEG - NEG mg/dl GLU - NEG - NEG mg/dl *Urine Cx [id number] Reviewed date:06/20/2024 12:22:21 PM Interpretation: Performing Lab:[facility], [address], [place], Phone - [phone], Director - Bruce Notes/Report: Urine Culture, Routine Final report Result 1 Klebsiella pneumoniae Cefazolin with an BILLY <=16 predicts susceptibility to the oral agents cefaclor, cefdinir, cefpodoxime, cefprozil, cefuroxime, cephalexin, and loracarbef when used for therapy of uncomplicated urinary tract infections due to E. coli, Klebsiella pneumoniae, and Proteus mirabilis. Greater than 100,000 colony forming units per mL Antimicrobial Susceptibility S = Susceptible; I = Intermediate; R = Resistant P = Positive; N = Negative MICS are expressed in micrograms per mL Antibiotic RSLT#1 RSLT#2 RSLT#3 RSLT#4 Amoxicillin/Clavulanic Acid S Ampicillin R Cefazolin S Cefepime S Cefoxitin S Cefpodoxime S Ceftriaxone S Ciprofloxacin S Ertapenem S Gentamicin S Levofloxacin S Meropenem S Nitrofurantoin R Piperacillin/Tazobactam S Tetracycline I Tobramycin S Trimethoprim/Sulfa S REASON FOR VISIT OTHER, [facility] [address], dysuria and frequency urinating x 1 week Medications Medication SIG (Take, Route, Frequency, Duration) Notes Start Date End Date Status Ciprofloxacin HCl 500 MG 1 tablet Orally every 12 hrs for 5 days 06/16/2024 06/21/2024 Active Citalopram Hydrobromide Active HYDROcodone-Acetaminophen Active Fluticasone Propionate 50 MCG/ACT Nasal for 30 Days Active Levothyroxine Sodium Active Atorvastatin Calcium Active Meclizine HCl Active Myrbetriq Active Gabapentin Active Omeprazole Active Symbicort Active Vital Signs Temperature 98.1 degrees Fahrenheit 06/16/19 25 Blood pressure systolic 109 mm Hg 06/16/19 25 Blood pressure diastolic 64 mm Hg 025 Heart Rate 85 /min 06/16/2024 Respiratory Rate 20 /min 06/16/2024 Height 65 in 06/16/2024 Weight 240 lbs 06/16/2024 BMI 39.93 kg/m2 06/16/2024 Oximetry 98 % 06/16/2024 Weight-kg 108.86 kg 06/16/2024 Encounters Encounter Location Date Provider Diagnosis [facility] [address] [facility] [phone] 06/16/2024 Emily Burleson Dysuria R30.0 and Urinary tract infection in female N39.0 Assessments Encounter Date Diagnosis (ICD Code) Assessment Notes Treatment Notes Treatment Clinical Notes Section Notes 06/16/2024 Dysuria (ICD-10 - R30.0) 06/16/2024 Urinary tract infection in female (ICD-10 - N39.0) Zenon pal CRCL: 49.47 on 05/26/2024 Urine culture at on 03/2024 susceptible to Cipro positive Klesiella 06/16/2024 Other Access your visit summary and after-visit care instructions via our online Patient Portal by visiting [email or web address]. Please follow up with your primary care provider if any other concerns: If you do not have a primary care provider you can obtain one by: a) Calling [phone] or b) Going to [email or web address] Plan Of Treatment Medication Medication Name Sig Start Date Stop Date Notes Ciprofloxacin HCl 500 MG 1 tablet Orally every 12 hrs for 5 days 06/16/2024 06/21/2024 Treatment Notes Assessment Notes Other Access your visit summary and after-visit care instructions via our online Patient Portal by visiting [email or web address]. Please follow up with your primary care provider if any other concerns: If you do not have a primary care provider you can obtain one by: a) Calling [phone] or b) Going to [email or web address] Progress Notes * RIDGE ROMERO LDOB:[birth year] (73 yo F)Acc No.[id number]:06/16/2024 Patient: RIDGE CARBONE L Provider: Tayler Burleson PA-C :1950 A ge:73 Y S ex:Female Date:06/16/2024 External Visit ID:[id number] Address:[address] [place] [address] Pcp:Arjun Anthony DO Subjective: * Chief Complaints: * [address]uria and frequency urinating x 1 week * HPI: G enito-Urinary: h/o UTI's -dysuria - increased frequency X 1.5 weeks - stage 3B kidney, no dialysis Scheduled for a urogyn specialist in about a week. Duration a bout a week. Dysuria a dmits. Hematuria d enies. Severity of symptoms M oderate. Back Pain N one. Urine flow quality u rgency, hesitancy , frequency. N / V d enies. Fever d enies. Pelvic pain d enies. Vaginal discharge n one. STI Concern n one. Modifyng Factors p t has tried advil with marginal relief..? * ROS: S ee HPI. * Medical History: * Family History: N o Family Hx of: diagnosed with Diabetes, Mental Illness, Stroke, Cancer. M other: diagnosed with Hypertension. S iblings: diagnosed with Hypertension, Heart Disease. * Social History: - GH Quality: F fadumo Shot W ould you like to receive a flu shot today? (Document all responses in immunizations) N o, Previously received (Choose [facility] - Flu Previously Received) BMI W ere height and weight measured and recorded today? Y es Questions 50+ I s the patient 50 or older? Y es I s the patient 65 and older Y es H ave you ever receieved pneumococcal vaccine??No - Coronavirus: C oronavirus H ave you been exposed to COVID-19 in the past 14 days? N o COVID Vaccine H ave you received the COVID Vaccine? Y es - 2 doses of Moderna OR Pfizer vaccines administered; vaccine series completed H ave you received the COVID vaccine booster??Yes, Moderna OR Pfizer * Medications: T akingHYDROcodone-Acetaminophen Citalopram Hydrobromide Gabapentin Omeprazole Symbicort Meclizine HCl Myrbetriq Levothyroxine Sodium Atorvastatin Calcium Fluticasone Propionate 50 MCG/ACT Suspension Nasal Taking HYDROcodone- Acetaminophen Taking Citalopram Hydrobromide Taking Gabapentin Taking Omeprazole Taking Symbicort Taking Meclizine HCl Taking Myrbetriq Taking Levothyroxine Sodium Taking Atorvastatin Calcium Taking Fluticasone Propionate 50 MCG/ACT Suspension Nasal DiscontinuedBenzonatate 100 MG Capsule 2 capsule as needed Orally Three times a day Lidocaine 4 % Patch 1 patch as needed Externally Once a day Opal Albuterol Sulfate HFA Medication List reviewed and reconciled with the patientDiscontinued Benzonatate 100 MG Capsule 2 capsule as needed Orally Three times a day Discontinued Lidocaine 4 % Patch 1 patch as needed Externally Once a day Discontinued Opal Discontinued Albuterol Sulfate HFA Medication List reviewed and reconciled with the patient * Allergies: S keila Monsivais[Allergies Verified] Objective: * Vitals: T emp:98.1F, HR:85/min, BP:109/64mm Hg, RR:20/min, Oxygen sat %:98%, Ht: 65 in, Wt: 240 lbs, Wt-k.86 kg, BMI:39.93Index. * Examination: [facility] Exams: GENERAL: n o acute distress, well developed, well nourished. LUNGS: N o respiratory distress. ABDOMINAL: T nick on exam, Suprapubic, no CVA tenderness.? GENITOURINARY: n ot indicated. BACK: no costovertebral angle tenderness. PSYCHIATRIC: Affect and mood normal, Interactive, conversant, alert and oriented. SKIN/Wound no rash on visible skin. ? Assessment: * Assessment: 1. U rinary tract infection in female - N39.0 (Primary) 2 . D ysuria - R30.0 Plan: * Treatment: Value Reference Range U rine Culture, Routine Final report A - * R esult 1 Klebsiella pneumoniae A - * Leatha Lewis 06/20/2024 12 :22:17 PM EST > Urine culture is positive and treated appropriately, no change in antibiotic.This lab was reviewed by Leatha Lewis on 06/20/2024 at 12:22 PM EST Clinical Notes: Zenon pal CRCL: 49.47 on 05/26/2024 Urine culture at on 03/2024 susceptible to Cipro positive Klesiella?? 2.?Dysuria?LAB: Urinalysis (Collection Date & Time - 06/16/2024)?Abnormal* Value Reference Range L EU 3+ NEG - NEG reva/ul * N IT + NEG - NEG * U RO 1+ NORM - NORM mg/dl * P RO trace: 15 mg/dL NEG - NEG mg/dl * p H 6.0 5 - 7.01 * B LO trace: 10 ruben/uL NEG - NEG Ruben/ul * S G 1.020 1.000 - 1.010 * K ET - NEG - NEG mg/dl * B IL 2+ NEG - NEG mg/dl * G FADUMO - NEG - NEG mg/dl * Mateusz Dominguez 06/16/2024 02:12:20 PM EST > positive Emily Rice 06/20/2024 07:02:55 AM EST > Abnormal, positive 3.?Others? Notes:Access your visit summary and after-visit care instructions via our online Patient Portal by [email or web address]. Please follow up with your primary care provider if any other concerns:If you do not have a primarycare provider you can obtain one by:a) Calling [phone] orb) [email or web address]?? * Procedure Codes: 8 1003 URINALYSIS, AUTO, W/O SCOPE, Modifiers: QW * Images: Billing Information: * Visit Code: 22251 URGENT CARE VISIT. * Procedure Codes: 98692 URINALYSIS, AUTO, W/O SCOPE. Modifiers: QW * Sign off status: Completed true * Provider: Tayler Burleson PA-C Date: 0 06/16/2024 Generated for Laura hughes/Blanka/eTransmitting on: 0 09/15/2024 03:22 PM EDT History and Physical Notes * HPI (History of Present Illness) Category Sub-Category Detail Notes Category Not es Genito-Urinary Dysuria admits Hematuria denies Severity of symptoms Moderate Back Pain None Urine flow quality urgency, hesitancy , frequency N / V denies Fever denies Duration about a week Modifyng Factors pt has tried advil w ith marginal relief. STI Concern none Pelvic pain denies Vaginal discharge none Examination Category Sub-Category Detail Notes Category Not es [facility] Exams GENERAL: no acute distres s, well developed, well nourished LUNGS: No respiratory distr ess ABDOMINAL: Tender on exam, Supr apubic, no CVA tenderness GENITOURINARY: not indicated BACK: no costovertebral an gle tenderness PSYCHIATRIC: Affect and mood norm al, Interactive, conversant, alert and oriented SKIN/Wound no rash on visible s kin
--- OUTSIDE RECORDS SUMMARY | 2024-09-15 14:22 | XMS_ITS | CCD ---
Author Name Interface, [id number] lit Address [address] Organization [facility] Address [address] Care Team Providers Care Character Actress Name Role Phone Jeovanny Chau Unavailable Unavailable Allergies and Adverse Reactions Care Plan Reason for Visit Encounters Functional Status Immunizations Diagnostic Results Medications Problems Social History Vital Signs
--- OUTSIDE RECORDS SUMMARY | 2024-09-15 14:22 | XMS_ITS ---
Author Name Interface, [id number] lity Address [address] [facility] [address] [place] [address] Organization [facility] Address [address] [facility] [address] [place] [address] Care Team Providers Care Bending Machine Operator Name Role Phone Mary King Unavailable Unavailable Allergies and Adverse Reactions Medication/Group Name Reaction Severity Date Sulfamide 08/11/2024 Plan Date Type Value 08/11/2024 APPOINTMENT New Patient 08/11/2024 LABORDER CBC w/ auto diff 08/11/2024 LABORDER Iron, TIBC, Ferr itin panel 08/11/2024 LABORDER SPEP with immuno fixation 08/11/2024 LABORDER CMP w/ LDH 08/11/2024 LABORDER Narberth/Lambda lig ht chains, free w/ ratio, serum Reason for Visit New Patient Encounters Date Name 08/11/2024 Anemia (disorder) 08/11/2024 Rheumatoid arthritis (disorder) Immunizations Date Name Route Dose Instructions Refusal Reason Stat us Covid-19 vaccine (Pfizer) Completed Diagnostic Results Date Type Test Units Lower Limit Upper Limit Result Flag Comments Status Ordered By Specimen Source Lab Address 08/11 WBC x10E3/ uL 3.5 11.0 7.6 FINAL Mary Pateltt 08/11 RBC x10E6/ uL 3.8 5.2 3.28 Low FINAL Mary Fernando 08/11 HGB g/dL 11.7 15.7 9.7 Low FINAL Mary Fernando 08/11 HCT % 35.0 47.0 30.4 Low FINAL Mary Fernando 08/11 MCV fL 80.0 100.0 92.7 FINAL Mary Fernando 08/11 MCH pg 26.5 34.0 29.6 FINAL Mary Fernando 08/11 MCHC g/dL 31.5 36.3 31.9 FINAL Mary Fernando 08/11 RDW % 11.5 14.5 14.1 FINAL Mary Fernando 08/11 PLT x10E3/ uL 150.0 400.0 201 FINAL Mary Fernando08/11 MPV fL 6.5 12.8 10.7 FINAL Mary Fernando 08/11 NRBC (M) /100WB C <1 FINAL Mary Fernando 08/11 Preli minar y ANC x10E3/ uL 1.8 6.6 4.2 FINAL Mary Fernando08/11 Absol sycuan neutr ophil count x10E3/ uL 1.8 6.6 4.2 FINAL Mary 08/11 Absol sycuan Lymph Autom ated x10E3/ uL 0.9 4.4 2.5 FINAL Mary 08/11 Absol sycuan Craig Autom ated x10E3/ uL 0.1 1.1 0.6 FINAL Mary 08/11 Absol sycuan Eos Autom ated x10E3/ uL 0.0 0.3 0.2 FINAL Mary 08/11 Absol sycuan Baso Autom ated x10E3/ uL 0.0 0.1 0.1 FINAL Mary 08/11 Absol sycuan IG Autom ated x10E3/ uL 0.0 FINAL Mary 08/11 Gran % % 55.2 FINAL Mary 08/11 Granu locyt es, immat ure % 0.1 FINAL Mary Fernando 08/11 LY % % 33.5 FINAL Mary Fernando 08/11 MO % % 7.3 FINAL Mary Fernando 08/11 EO % % 3.0 FINAL Mary Fernando 08/11 BA % % 0.9 FINAL Mary Fernando 08/11 CMP Gluco se mg/dL 70.0 99.0 88 FINAL Mary 08/11 CMP Sodiu m mmol/L 136.0 146.0 133 Low FINAL Mary Fernando 08/11 CMP Potas sium mmol/L 3.5 5.0 4.3 FINAL Mary Fernando 08/11 CMP Chlor elyse mmol/L 98.0 107.0 97 Low FINAL [facility] 08/11 CMP CO2 mmol/L 24.0 32.0 28 FINAL [facility] 08/11 CMP BUN mg/dL 8.0 22.0 23 High FINAL [facility] 08/11 CMP Creat inine mg/dL 0.5 1.0 1.07 High FINAL [facility] 08/11 CMP Anion gap, mmol/ L 4.0 12.0 8 FINAL [facility] 08/11 CMP Calci um mg/dL 8.4 10.3 9.3 FINAL [facility] 08/11 CMP Bilir ubin, total mg/dL 0.2 1.0 0.3 FINAL [facility] 08/11 CMP Total prote in g/dL 6.1 8.3 7.3 FINAL [facility] 08/11 CMP Album in g/dL 3.8 5.1 4.2 FINAL [facility] 08/11 CMP ALT/S GPT U/L 7.0 52.0 13 FINAL [facility] 08/11 CMP AST/S GOT U/L 11.0 39.0 17 FINAL [facility] 08/11 CMP Alkal ine phosp hatas e U/L 50.0 135.0 51 FINAL [facility] 08/11 CMP Album in/Gl obuli n Ratio 0.8 2.2 1.4 FINAL [facility] 08/11 Estim ated GFR mL/min /1.73s qm 54 GFR Categorie s in CKD GFRCatego ry mL/min/1. 73 m^2 Terms---- --------- --------- --------- --------- --------- -------G1 >=90 Normal or highG2 60-89 Mildly decreased *G3a 45-59 Mildly to moderatel y decreased G3b 30-44 Moderatel y to severely decreased G4 15-29 Severely decreased G5 <15 Kidney failure-- --------- --------- --------- --------- --------- --------- --Abbrevi ations: CKD, chronic kidney disease; GFR, glomerula rfiltrati on rate.*Rel ative to young adult level.In the absence of evidence of kidney damage, neither GFRcatego ry G1 nor G2 fulfill the criteria for CKD------ --------- --------- --------- --------- --------- --------E stimated GFR is calculate d without a race coefficie ntusing CKD-EPI Creatinin e Equation( 2020). Values should beinterpr eted in the context of the patient's full clinicalp resentati on.Refere nce: Norbert Lester et al. A Unifying Approach for GFREstima tion: Recommend ations of the NKF-ASN Task Force onReasses sing the Inclusion of Race in Diagnosin g Kidney Disease.J ournal of the [place] [employer] of Nephrolog y : CHIOMA 2020 FINAL Mary Fernando 2 Terms 08/11 Is Patie nt Fasti ng? No FINAL Mary Fernando 08/11 Serum Total Prote in g/dL 6.1 8.3 7.0 FINAL Mary Fernando 08/11 Album in, SPE g/dL 3.8 5.1 4.0 FINAL Mary Fernando 08/11 Alpha -1 globu kimmy g/dL 0.2 0.4 0.4 FINAL Mary Fernando 08/11 Alpha -2 globu kimmy g/dL 0.5 1.0 0.9 FINAL Mary Fernando 08/11 Beta globu kimmy g/dL 0.6 1.0 0.7 FINAL Mary Fernando 08/11 Gamma globu kimmy g/dL 0.5 1.4 1.1 FINAL Mary Fernando 08/11 SPE inter preta tion See Comment No monoclona l proteins seen. FINAL Mary Fernando 08/11 IgG, quant mg/dL 610.0 1616.0 1107 [facility] uses immunotur bidimetri c methodolo gy for thequanti tative determina tion of IgG in human serum on the Binding SiteOptil ite platform. FINAL [facility] 08/11 IgA, quant mg/dL 84.5 499.0 146.0 [facility] uses immunotur bidimetri c methodolo gy for thequanti tative determina tion of IgA in human serum on the Binding SiteOptil ite platform. FINAL [facility]08/11 IgM, quant mg/dL 35.0 242.0 83 [facility] uses immunotur bidimetri c methodolo gy for thequanti tative determina tion of IgM in human serum on the Binding SiteOptil ite platform. FINAL [facility] 08/11 Iron profi le Iron mcg/dL 40.0 150.0 36 Low FINAL [facility] 08/11 Iron profi le TIBC mcg/dL 220.0 440.0 255 FINAL [facility] 08/11 Iron profi le Trans roselyn n satur ation , % % 15.0 55.0 14 Low FINAL [facility] 08/11 Iron profi le Unbou nd iron capac ity ug/dL 155.0 355.0 219 FINAL [facility] 08/11 Roselyn tin ng/mL 13.0 150.0 87 FINAL [facility] 08/11 Free kappa / lambd a with K/L ratio , serum Narberth light chain , free mg/L 3.3 19.4 29.9 High [facility] uses immunotur bidimetri c methodolo gy for thequanti tative determina tion of free Narberth Light chains in human serum on theBindin g Site Optilite platform. FINAL [facility] 08/11 Free kappa / lambd a with K/L ratio , serum Lambd a light chain , free mg/L 5.7 26.3 16.1 [facility] uses immunotur bidimetri c methodolo gy for thequanti tative determina tion of free Lambda Light chains in human serum on theBindin g Site Optilite platform. FINAL [facility] 08/11 Free kappa / lambd a with K/L ratio , serum Free K/L ratio Ratio 0.26 1.65 1.86 High FINAL Mary King 08/11 LDH, IU/L U/L 107.0 270.0 162 FINAL Mary King Medications Date Name Route Dose Frequency Instructions Start Date End Date Status Citalopram Oral 1.5 tablet daily active Ferrous Sulfate Oral daily active Levothyroxine Oral daily active Gabapentin Oral qid a ctive Meclizine Oral daily ac tive Losartan Oral daily act roberto Atorvastatin Oral daily active Levothyroxine Oral daily active Fluticasone-Umecl idin-Vilanter Inhaler 100 mcg-62.5 mcg-25 mcg/actuation daily not sure of dose active Omeprazole Oral Delayed Release Capsule daily active Fluticasone Nasal [place] 50 mcg/actuation daily active Albuterol HFA Inhaler 90 mcg/actuation daily active Problems Diagnosis Status Date of Diagnosi s Anemia (disorder) Active Rheumatoid arthritis (disorder) Active 08/11/2024 Vital Signs Date Type Value 08/11/2024 Weight 252.00 08/11/2024 Height 66.00 08/11/2024 BMI 40.67 08/11/2024 BSA 2.21 08/11/2024 Intravascular Systolic 164 08/11/2024 Intravascular Diastolic 83 08/11/2024 Body Temperature 98.00 08/11/2024 Heart Beat 66.00 08/11/2024 Oxygen Saturation 93.00 08/11/2024 Pain Scale 5.00 Notes Section * Nurse Note for: 11-AUG-24 [facility] Nurse Note Print Location: Unknown Date/Time Printed: 09/15/2024 03:22 PM ([facility]) Patient: Claritza Zhang Sex: Female : 1950 Date of Service: 08/11/2024 Allergies : Sulfamide Vital Signs : Time: 02:46 PM. Temperature: 98 (F) . Pulse: 66 (/min) . Blood pressure: 164/83 (mm Hg) left arm Regular. O2 Saturation: 93 (%) . Entered by Susanna Joy 08/11/2024 02:52 PM Time: 02:46 PM. Pain Scale: 5 back. Entered by Susanna Joy 08/11/2024 02:50 PM Time: 02:46 PM. Weight: 252 lb (114.31 kg). Height: 66 in (167.64 cm). BMI: 40.67 (kg/m2) . BSA: 2.21 (m2) . Entered by Susanna Joy 08/11/2024 02:49 PM Patient Assessment : Positive results Assessment : Alert, oriented with appropriate behavior, Gait Changes. Complains of Neuropathy, Pain-5 (back), Fatigue, Skin Changes, Dizziness, Breathing Changes, Constipation. Negative results Assessment : Labs Verified: No. Denies Anxiety/Depression , Fever, Chills or Night Sweats , Signs of Infection , Headaches , Nausea, Cough , Mouth Sores/Stomatitis/Mucositis , Changes in Appetite , Vomiting , Diarrhea , Urinary Changes , Bleeding . Entered By Susanna Joy on 02:50 PM
--- OUTSIDE RECORDS SUMMARY | 2024-09-15 14:23 | XMS_ITS ---
Author Organization [facility] Address [address] [facility] [address] [address] [place] [address] Care Team Providers Care Sliver Former Name Role Phone Arjun Anthony DO Primary Care Provider Jerry Colmenares Unavailable [phone] Allergies Allergen (clinical drug ingredient) Drug/Non Drug Allergy documented on EMR Reaction Allergy Type Onset Date Status Substance with sulfonamide structure and antibacterial mechanism of action (substance) Sulfa Antibiotics Unknown Drug Allergy Active REASON FOR VISIT Pain in ears, nasal congestion, post nasal drip, and productive cough x6 days Medications Medication SIG (Take, Route, Frequency, Duration) Notes Start Date End Date Status Levothyroxine Sodium Active Myrbetriq Active Fluticasone Propionate 50 MCG/ACT Nasal for 30 Days Active Albuterol Sulfate HFA Not-Taking Atorvastatin Calcium Active Meclizine HCl Active Symbicort Active Omeprazole Active Gabapentin Active predniSONE 20 MG 1 tablet Orally Once a day for 5 days 05/16/2024 05/21/2024 Active Citalopram Hydrobromide Active HYDROcodone-Acetaminophen Active Opal Active Benzonatate 100 MG 2 capsule as needed Orally Three times a day for 10 05/16/2024 05/26/2024 Active Doxycycline Hyclate 100 MG 1 tablet Orally Twice a day for 10 05/16/2024 05/26/2024 Active Social History Tobacco Use: Social History Observation Description Date Details (start date - stop date) Former Smoker NA - NA Tobacco use other than smoking: Question Answer Notes Are you an other tobacco user? No Smoking Cessation Materials Question Answer Notes Patient counseled on the dangers of smoking and urged to quit: 05/16/2024 Tobacco Control (Standard) Question Answer Notes Tobacco use: Former smoker Problems Problem Type SNOMED Code ICD Code Onset Dates Problem Status W/U Status Risk Notes Problem [id number] Chronic obstructive pulmonary disease with acute exacerbation (J44.1) Active confirmed Vital Signs Temperature 97.9 degrees Fahrenheit 05/16/20 Blood pressure systolic 131 mm Hg 05/16/20 Blood pressure diastolic 79 mm Hg 024 Heart Rate 98 /min 05/16/2024 Respiratory Rate 18 /min 05/16/2024 Height 66 in 05/16/2024 Weight 254.6 lbs 05/16/2024 BMI 41.09 kg/m2 05/16/2024 Oximetry 96 % 05/16/2024 Weight-kg 115.48 kg 05/16/2024 Encounters Encounter Location Date Provider Diagnosis [facility] [address] [id number] 05/16/2024 Jerry Burt Chronic obstructive pulmonary disease with acute exacerbation J44.1 Assessments Encounter Date Diagnosis (ICD Code) Assessment Notes Treatment Notes Treatment Clinical Notes Section Notes 05/16/2024 Chronic obstructive pulmonary disease with acute exacerbation (ICD-10 - J44.1) Continue Symbicort twice a day Rescule inhaler added as needed for wheezing or shortness of breath q6h prn Oral steroids prescribed and precautions discussed with patient doxycycline as prescribed Drink plenty of fluids over the next week to help keep secretions moist and easy to clear. ++++ In addition to drinking a lot of fluids, humidifying the home air with a vaporizer or humidifier, breathing steam (such as in the shower), and using normal saline nose drops can all be used to moisten secretions and make them easier to clear. Mucinex DM as needed ++++ Salt water nasal sprays such as [place] or [place] can be used to help moisten your nasal passages and help make clearing secretions easier. ++++ Try to get extra sleep over the next several days as this will help you to get better faster. ++++ In order to prevent the spread of infection to others, don''t share glasses or eating utensils and make sure they are washed in hot, soapy water. Cover your mouth when coughing and wash hands frequently or use an alcohol based hand integrated marketing specialist to disinfect hands. ++++ It is common to have bodyaches/chill s/sweats/and low grade fevers during the first 3 - 4 days of an upper respiratory infection. These symptoms are usually of no great concern and should subside by day 4 - 5. If they do not or you develop high fevers/shortnes s or breath/a cough productive of purulent sputum/or severe throat pain or difficulty swallowing, you should seek care immediately (return, go to your PMD, or the ER). Steroids (like prednisone) can cause increased appetite, poor sleep, elevated blood sugars, and mood instability for several days Patient understands and agrees with above treatment and plan. Plan Of Treatment Medication Medication Name Sig Start Date Stop Date Notes predniSONE 20 MG 1 tablet Orally Once a day for 5 days 05/16/2024 05/21/2024 Benzonatate 100 MG 2 capsule as needed Orally Three times a day for 05/16/2024 05/26/2024 Doxycycline Hyclate 100 MG 1 tablet Oral ly Twice a day for 05/16/2024 05/26/2024 Treatment Notes Assessment Notes Chronic obstructive pulmonar y disease with acute exacerbation Continue Symbicort twice a day Rescule inhaler added as needed for wheezing or shortness of breath q6h prn Oral steroids prescribed and precautions discussed with patient doxycycline as prescribed Drink plenty of fluids over the next week to help keep secretions moist and easy to clear. ++++ In addition to drinking a lot of fluids, humidifying the home air with a vaporizer or humidifier, breathing steam (such as in the shower), and using normal saline nose drops can all be used to moisten secretions and make them easier to clear. Mucinex DM as needed ++++ Salt water nasal sprays such as [place] or [place] can be used to help moisten your nasal passages and help make clearing secretions easier. ++++ Try to get extra sleep over the next several days as this will help you to get better faster. ++++ In order to prevent the spread of infection to others, don''t share glasses or eating utensils and make sure they are washed in hot, soapy water. Cover your mouth when coughing and wash hands frequently or use an alcohol based hand integrated marketing specialist to disinfect hands. ++++ It is common to have bodyaches/chills/sweats/and low grade fevers during the first 3 - 4 days of an upper respiratory infection. These symptoms are usually of no great concern and should subside by day 4 - 5. If they do not or you develop high fevers/shortness or breath/a cough productive of purulent sputum/or severe throat pain or difficulty swallowing, you should seek care immediately (return, go to your PMD, or the ER). Steroids (like prednisone) can cause increased appetite, poor sleep, elevated blood sugars, and mood instability for several days Patient understands and agrees with above treatment and plan. Progress Notes * RIDGE ROMERO LDOB:[birth year] (73 yo F)Acc No.[id number]:05/16/2024 Patient: RIDGE CARBONE Provider: Alli Burt PA-C :1950 A ge:73 Y S ex:Female Date:05/16/2024 External Visit ID:[id number] Address:[address] [place] [address] Pcp:Arjun Anthony DO Subjective: * Chief Complaints: * P ain in ears, nasal congestion, post nasal drip, and productive cough x6 days * HPI: - General Complaint: 73 y/o female presenting for cough and congestion x6 days. cough productive with colored sputum. pain in b/l ears. does report hx of copd. using inhalers as needed. denies f/c, cp, hemoptysis, n/v/d, drainage from ears, leg swelling, body aches, sore throat, trouble swallowing, drooling sob with exertion. increased rescue inhaler use which helps on O2 at home. * Medical History: * Family History: N o Family Hx of: diagnosed with Diabetes, Cancer, Stroke, Mental Illness. S iblings: diagnosed with Hypertension, Heart Disease. * Social History: - Tobacco Use: T obacco use other than smoking A re you an other tobacco user? N o Smoking Cessation Materials P atient counseled on the dangers of smoking and urged to quit: 1 07/17/2023 Ebola Screening: H [facility] you [facility] within the past month?: No. Do you have fever and/or severe headache, fatigue, muscle pain, vomiting, diarrhea, abdominal pain, rash or unexplained bleeding: N/A. 021 - GH Quality: F edgard Shot W ould you like to receive [...] H ave you ever receieved pneumococcal vaccine??No 021 - Coronavirus: C oronavirus H ave you been exposed to COVID-19 in the past 14 days? N o COVID Vaccine H ave you received the COVID Vaccine? Y es - 2 doses of Moderna OR Pfizer vaccines administered; vaccine series completed H ave you received the COVID vaccine booster??Yes, Moderna OR Pfizer T obacco Use: T obacco Control (Standard) T obacco use: F ormer smoker * Medications: T akingAllegra HYDROcodone-Acetaminophen Citalopram Hydrobromide Gabapentin Omeprazole Symbicort Meclizine HCl Myrbetriq Levothyroxine Sodium Atorvastatin Calcium Fluticasone Propionate 50 MCG/ACT Suspension Nasal Taking Opal Taking HYDROcodone-Acetaminophen Taking Citalopram Hydrobromide Taking Gabapentin Taking Omeprazole Taking Symbicort Taking Meclizine HCl Taking Myrbetriq Taking Levothyroxine Sodium Taking Atorvastatin Calcium Taking Fluticasone Propionate 50 MCG/ACT Suspension Nasal Not-Taking/PRNAlbuterol Sulfate HFA Medication List reviewed and reconciled with the patientNot-Taking/PRN Albuterol Sulfate HFA Medication List reviewed and reconciled with the patient * Allergies: Tootie Monsivais[Allergies Verified] Objective: * Vitals: T emp:97.9F, HR: 128 /min,98/min, BP:131/79mm Hg, RR: 28 /min,18/min, Oxygen sat %:96%, Ht: 66 in, Wt: 254.6 lbs, Wt-k.48 kg, BMI:41.09Index. * Examination: G eneral Examination: G eneral: NAD, cooperative, well appearing, alert Head: atraumatic Eyes: conjunctiva not injected, EOM grossly intact, no discharge ENT: TM: b/l no erythema or bulging of tm. Landmarks and reflexes intact. Canal: b/l no erythema or swelling. No d/c. Nose: congestion noted Throat: no exudate, signs of STEEL LAYER, streaking. uvula midline. no drooling. Neck: supple, no lymphadenopathy Cardiovascular: regular rate and rhythm, no murmurs, rubs, gallops Lungs: Normal effort, no respiratory distress, b/l wheezing with expiration, no rales/rhonchi/crackles Abdomen: no gross distention, bowel sounds normal, non tender to palpation Extremities: able to move all extremities freely Neurological: no focal deficit, normal gait, A&O Psychological: normal affect and responses Skin: warm and dry. Assessment: * Assessment: 1. C hronic obstructive pulmonary disease with acute exacerbation - J44.1 (Primary) ? Plan: * Treatment: * Procedure Codes: * Images: Billing Information: * Visit Code: [id number] URGENT CARE VISIT. * Procedure Codes: * Sign off status: Completed true * Provider: Alli Burt PA-C Date: 1 07/17/2023 Generated for Angelitai ng/Facharg/eTransmitting on: 0 09/15/2024 03:23 PM EDT History and Physical Notes * HPI (History of Present Illness) Category Sub-Category Detail Notes Category Not es -General Complaint 73 y/o female presenting for cough and congestion x6 days. cough productive with colored sputum. pain in b/l ears. does report hx of copd. using inhalers as needed. denies f/c, cp, hemoptysis, n/v/d, drainage from ears, leg swelling, body aches, sore throat, trouble swallowing, drooling sob with exertion. increased rescue inhaler use which helps on O2 at home Examination Category Sub-Category Detail Notes Category Not es General Examination General: NAD, cooperative, well appearing, alert Head: atraumatic Eyes: conjunctiva not injected, EOM grossly intact, no discharge ENT: TM: b/l no erythema or bulging of tm. Landmarks and reflexes intact. Canal: b/l no erythema or swelling. No d/c. Nose: congestion noted Throat: no exudate, signs of STEEL LAYER, streaking. uvula midline. no drooling. Neck: supple, no lymphadenopathy Cardiovascular: regular rate and rhythm, no murmurs, rubs, gallops Lungs: Normal effort, no respiratory distress, b/l wheezing with expiration, no rales/rhonchi/crackles Abdomen: no gross distention, bowel sounds normal, non tender to palpation Extremities: able to move all extremities freely Neurological: no focal deficit, normal gait, A&O Psychological: normal affect and responses Skin: warm and dry
--- OUTSIDE RECORDS SUMMARY | 2024-09-15 14:23 | XMS_ITS ---
Author Organization [facility] us Address [address] [place] [address] Care Team Providers Care Primary Special Educator Name Role Phone Arjun Anthony DO Primary Care Provider Mylene Mark Brand Unavailable Allergies Allergen (clinical drug ingredient) Drug/Non Drug Allergy documented on EMR Reaction Allergy Type Onset Date Status Substance with sulfonamide structure and antibacterial mechanism of action (substance) Sulfa Antibiotics Unknown Drug Allergy Active Results Component Value Reference Range Notes XR Chest PA/Lat Reviewed date:05/28/2024 04:09:09 AM Interpretation: Performing Lab: Notes/Report: ECG Reviewed date:05/28/2024 04:44:01 AM Interpretation: Performing Lab: Notes/Report: REASON FOR VISIT Cough x2 weeks, Pain in left shoulder blade x8 days Medications Medication SIG (Take, Route, Frequency, Duration) Notes Start Date End Date Status Lidocaine 4 % 1 patch as needed Externally Once a day for 7 days 05/26/2024 Active Gabapentin Active Citalopram Hydrobromide Active HYDROcodone-Acetaminophen Active Opal Not-Taking Atorvastatin Calcium Active Albuterol Sulfate HFA Not-Taking Benzonatate 100 MG 2 capsule as needed Orally Three times a day for 05/16/2024 Active Doxycycline Hyclate 100 MG 1 tablet Orally Twice a day for 05/16/2024 05/26/2024 Active Fluticasone Propionate 50 MCG/ACT Nasal for 30 Days Active Symbicort Active Omeprazole Active Levothyroxine Sodium Active Myrbetriq Active Meclizine HCl Active Social History Tobacco Use: Social History Observation Description Date Details (start date - stop date) Former Smoker NA - NA Tobacco use other than smoking: Question Answer Notes Are you an other tobacco user? No Tobacco Control (Standard) Question Answer Notes Tobacco use: Former smoker Vital Signs Temperature 97.4 degrees Fahrenheit 05/26/19 25 Blood pressure systolic 125 mm Hg 05/26/19 25 Blood pressure diastolic 81 mm Hg 025 Heart Rate 75 /min 05/26/2024 Respiratory Rate 18 /min 05/26/2024 Height 65 in 05/26/2024 Weight 244.0 lbs 05/26/2024 BMI 40.6 kg/m2 05/26/2024 Oximetry 95 % 05/26/2024 Weight-kg 110.68 kg 05/26/2024 Encounters Encounter Location Date Provider Diagnosis [facility] [address] [address] 05/26/2024 Mark Shukla Acute pain of left shoulder M25.512 ; Chest pain, unspecified type R07.9 ; Costochondritis M94.0 and Post-viral cough syndrome R05.8 Assessments Encounter Date Diagnosis (ICD Code) Assessment Notes Treatment Notes Treatment Clinical Notes Section Notes 05/26/2024 Acute pain of left shoulder (ICD-10 - M25.512) Rest your shoulder as directed. Ice or heat for relief. Continue ibuprofen or Tylenol for pain. Take as directed on label. Take with food. Avoid heavy lifting or strenuous activity. Be sure pain is improving with conservative care. Call to schedule a follow up appointment with your primary care provider or orthopedic provider if pain persists. You may benefit from advanced imaging and/or physical therapy. Shoulder Pain: Care Instructions material was published, Shoulder Stretches: Exercises material was published [facility]: [phone] [place] [facility]: [phone], Rest your shoulder as directed. Ice or heat for relief. Continue ibuprofen or Tylenol for pain. Take as directed on label. Take with food. Avoid heavy lifting or strenuous activity. Be sure pain is improving with conservative care. Call to schedule a follow up appointment with your primary care provider or orthopedic provider if pain persists. You may benefit from advanced imaging and/or physical therapy. Shoulder Pain: Care Instructions material was published, Shoulder Stretches: Exercises material was published [facility]: [phone] [place] [facility]: [phone], Shoulder Pain: Care Instructions material was published 05/26/2024 Chest pain, unspecified type (ICD-10 - R07.9) If you develop chest pain/pressure that is persistent, severe, or associated with concerning symptoms such as dizziness, shortness of breath, nausea or radiating to the arm, jaw or back then you should not ignore these as they may be an indicator of heart disease that needs further medical attention right away- call 911 or go the nearest Emergency Room right away., Chest Pain: Care Instructions material was published Based on careful Hx, Exam, and/or Work up, I doubt ACS, PE, Dissection, Pericarditis, Myocarditis, PTX, or Ruptured Esophagus as a cause of this patients Sxs. I believe it is safe to continue their evaluation and treatment as an outpatient. Low probability of cardiac or pulmonary involvement resulting in chest or shoulder pain. Most probable cause is costrocondritis as evident by increase in pain upon palpation. 05/26/2024 Costochondritis (ICD-10 - M94.0) 05/26/2024 Post-viral cough syndrome (ICD-10 - R05.8) 05/26/2024 Other Access your visit summary and after-visit care instructions via our online Patient Portal by visiting [email or web address]. Smoking is exceedingly harmful to your heart and lung health. Please call 4-942-JFAP-NOW or visit https://www.cdc .gov/tobacco/ to help quit, and improve your penitentiary health. The home is the most common place where children and non-smoking adults are exposed to secondhand smoke. Secondhand smoke causes increased risk of asthma, certain cancers or infections, and heart disease in children and adults. Please follow up with your primary care provider if any other concerns: If you do not have a primary care provider you can obtain one by: a) Calling [phone] or b) Going to [email or web address] Plan Of Treatment Medication Medication Name Sig Start Date Stop Date Notes Lidocaine 4 % 1 patch as needed Ex ternally Once a day for 7 days 05/26/2024 Benzonatate 100 MG 2 capsule as needed Orally Three times a day for 10 05/16/2024 Treatment Notes Assessment Notes Acute pain of left shoulder Rest your shoulder as directed. Ice or heat for relief. Continue ibuprofen or Tylenol for pain. Take as directed on label. Take with food. Avoid heavy lifting or strenuous activity. Be sure pain is improving with conservative care. Call to schedule a follow up appointment with your primary care provider or orthopedic provider if pain persists. You may benefit from advanced imaging and/or physical therapy. Shoulder Pain: Care Instructions material was published, Shoulder Stretches: Exercises material was published [facility]: [phone] [place] [facility]: [phone], Rest your shoulder as directed. Ice or heat for relief. Continue ibuprofen or Tylenol for pain. Take as directed on label. Take with food. Avoid heavy lifting or strenuous activity. Be sure pain is improving with conservative care. Call to schedule a follow up appointment with your primary care provider or orthopedic provider if pain persists. You may benefit from advanced imaging and/or physical therapy. Shoulder Pain: Care Instructions material was published, Shoulder Stretches: Exercises material was published [facility]: [phone] [place] [facility]: [phone], Shoulder Pain: Care Instructions material was published Chest pain, unspecified type If you deve lop chest pain/pressure that is persistent, severe, or associated with concerning symptoms such as dizziness, shortness of breath, nausea or radiating to the arm, jaw or back then you should not ignore these as they may be an indicator of heart disease that needs further medical attention right away- call [phone] or go the nearest Emergency Room right away., Chest Pain: Care Instructions material was published Other Access your visit summary and after-visit care instructions via our online Patient Portal by visiting [email or web address]. Smoking is exceedingly harmful to your heart and lung health. Please call 8-770-WACT-NOW or visit https://www.cdc.gov/tobacco/ to help quit, and improve your tank terminal gauger health. The home is the most common place where children and non-smoking adults are exposed to secondhand smoke. Secondhand smoke causes increased risk of asthma, certain cancers or infections, and heart disease in children and adults. Please follow up with your primary care provider if any other concerns: If you do not have a primary care provider you can obtain one by: a) Calling [phone] or b) Going to [email or web address] Next Appt Details Follow Up: prn, Reason: Procedure Notes * Category Sub-Category Detail Notes GH - Scribe Attestation I: Richard Mota am scribing for and in the presence of:: DEANA Nagy .: . I: DEANA Nagy personally performed all ser vices described in this documentation, as scribed by: Richard Mota in my presence. I have reviewed the document ation and it is both accurate and complete.: Reviewed Progress Notes * RIDGE ROMERO LDOB:[birth year] (73 yo F)Acc No.[id number]:05/26/2024 Patient: RIDGE CARBONE Provider: DEANA Massey :1950 A ge:73 Y S ex:Female Date:05/26/2024 Address:[address] [place] [address] Pcp:Arjun Anthony DO Subjective: * Chief Complaints: * C ough x2 weeksPain in left shoulder blade x8 days * HPI: C ough: 73 y/o F presents to w/ c/o cough x 2 weeks and pain in left shoulder bladfe x 8 days. Pt has not taken any medications for relief. Denies wheezing,fever, chills, SOB, prior injuries/traumas or any other sxs. * ROS: S ee HPI. * Medical History: * Family History: N o Family Hx of: diagnosed with Cancer, Diabetes, Mental Illness, Stroke. S iblings: diagnosed with Hypertension, Heart Disease. * Social History: - Tobacco Use: T obacco use other than smoking A re you an other tobacco user? N o Ebola Screening: H ave you returned from [place] or [place] within the past month?: No. Do you have fever and/or severe headache, fatigue, muscle pain, vomiting, diarrhea, abdominal pain, rash or unexplained bleeding: N/A. - GH Quality: F edgard Shot W [...] H ave you ever receieved pneumococcal vaccine??No 2 021 - Coronavirus: C oronavirus H ave [...] use: F ormer smoker * Medications: T akingHYDROcodone-Acetaminophen Citalopram Hydrobromide Gabapentin Omeprazole Symbicort Meclizine HCl Myrbetriq Levothyroxine Sodium Atorvastatin Calcium Fluticasone Propionate 50 MCG/ACT Suspension Nasal Doxycycline Hyclate 100 MG Tablet 1 tablet Orally Twice a day , stop date 05/26/2024Taking HYDROcodone- Acetaminophen Taking Citalopram Hydrobromide Taking Gabapentin Taking Omeprazole Taking Symbicort Taking Meclizine HCl Taking Myrbetriq Taking Levothyroxine Sodium Taking Atorvastatin Calcium Taking Fluticasone Propionate 50 MCG/ACT Suspension Nasal Taking Doxycycline Hyclate 100 MG Tablet 1 tablet Orally Twice a day , stop date 05/26/2024Not-Taking/PRNAllegra Albuterol Sulfate HFA Medication List reviewed and reconciled with the patientNot-Taking/PRN Opal Not-Taking/PRN Albuterol Sulfate HFA Medication List reviewed and reconciled with the patient * Allergies: S keila Monsivais[Allergies Verified] Objective: * Vitals: T emp:97.4F, HR:75/min, BP:125/81mm Hg, RR:18/min, Oxygen sat %: 94 %,95%, Ht: 65 in, Wt: 244.0 lbs, Wt-k.68 kg, BMI:40.6Index. * Examination: G eneral PE: GENERAL: n o acute distress, well developed, well nourished. HEAD: n ormocephalic. EYES: n o conjunctival injection noted. EARS/NOSE: t ympanic membranes clear without erythema or bulging. MOUTH/THROAT m oist mucous membranes , no tonsillar edema , no exudates. NECK s upple , trachea midline. LYMPHATIC n o cervical adenopathy. HEART: regular rate and rhythm. LUNGS: N ormal: clear to auscultation, No respiratory distress, no accessory muscle use, No rales, No rhonchi, No wheezing. EXTREMITIES: n o edema. SKIN/Wound warm, dry, No rash on visible skin. PSYCHIATRIC: Affect normal, Interactive, conversant. Assessment: * Assessment: 1. A cute pain of left shoulder - M25.512 (Primary) 2 . C hest pain, unspecified type - R07.9 3 . C ostochondritis - M94.0 4 . P ost-viral cough syndrome - R05.8 Plan: * Treatment: * Notes: Rest your shoulder as directed. Ice or heat for relief. Continue ibuprofen or Tylenol for pain. Take as directed on label. Take with food. Avoid heavy lifting or strenuous activity. Be sure pain is improving with conservative care. Call to schedule a follow up appointment with your primary care provider or orthopedic provider if pain persists. You may benefit from advanced imaging and/or physical therapy. Shoulder Pain: Care Instructions material was published, Shoulder Stretches: Exercises [facility]: [phone] [facility]: [phone], Rest your shoulder as directed. Ice or heat for relief. Continue ibuprofen or Tylenol for pain. Take as directed on label. Take with food. Avoid heavy lifting or strenuous activity. Be sure pain is improving with conservative care. Call to schedule a follow up appointment with your primary care provider or orthopedic provider if pain persists. You may benefit from advanced imaging and/or physical therapy. Shoulder Pain: Care Instructions material was published, Shoulder Stretches: Exercises material was [facility]: [phone] [facility] Manager: [phone], Shoulder Pain: Care Instructions material was published??2.?Chest pain, unspecified type?Imaging: XR Chest PA/Lat* Lung feilds are clear possib le congestion to the right lower lobe.This DI was reviewed by Yeimi Quiroga on 05/28/2024 at 04:09 AM EST * Notes: If you develop chest pain/pressure that is persistent, severe, or associated with concerningsymptoms such as dizziness, shortness of breath, nausea or radiating to the arm, jaw or back then you should not ignore these as they may be an indicator of heart disease that needs further medical attention right away- call 911 or go the nearest Emergency Room right away., Chest Pain: Care Instructions material was published?? Clinical Notes: Based on careful Hx, Exam, and/or Work up, I doubt ACS, PE, Dissection, Pericarditis, Myocarditis, PTX, or Ruptured Esophagus as a cause of this patients Sxs. I believe it is safe to continue their evaluation and treatment as an outpatient. Low probability of cardiac or pulmonary involvement resulting in chest or shoulder pain. Most probable cause is costrocondritis as evident by increase in pain upon palpation. ??3.?Costochondritis? Start Lidocaine Patch, 4 %, 1 patch as needed, Externally, Once a day, 7 days, 7 Each.??4.?Post-viral cough syndrome? Refill Benzonatate Capsule, 100 MG, 2 capsule as needed, Orally, Three times a day, 10, 60 Capsule. ?5.?Others? Notes:Access your visit summary and after-visit care instructions via our online Patient Portal by [email or web address]. Smoking is exceedingly harmful to your heart and lung health. Please call 9-864-HMIP-NOW or visithttps://www.cdc.gov/tobacco/to help quit, and improve your penitentiary health. The home is the most common place where children and non- smoking adults are exposed to secondhand smoke. Secondhand smoke causes increased risk of asthma, certain cancers or infections, and heart disease in children and adults. Please follow up with your primary care provider if any other concerns:If you do not have a primarycare provider you can obtain one by:a) Calling [phone] orb) Going [email or web address]?? * Procedures: G H - Scribe: Attestation I Nemesio roche scribing for and in the presence of: DEANA Massey . . I DEANA Massey p ersonally performed all services described in this documentation, as scribed by Nemesio Mota in my presence. I have reviewed the documentation and it is both accurate and complete. Clarissa velasco * Procedure Codes: 9 3000 -ELECTROCARDIOGRAM, [id number] X-RAY EXAM CHEST 2 [id number] URGENT CARE VISIT * Follow Up: p rn * Images: Billing Information: * Visit Code: * Procedure Codes: 86028 -ELECTROCARDIOGRAM, COMPLETE. 25809 X-RAY EXAM CHEST 2 VIEWS. 09862 URGENT CARE VISIT. * Sign off status: Completed true * Provider: DEANA Massey Date: 0 05/26/2024 Generated for Printi ng/Blanka/eTransmitting on: 0 09/15/2024 03:22 PM EDT History and Physical Notes * Examination Category Sub-Category Detail Notes Category Not es General PE GENERAL: no acute distres s, well developed, well nourished HEAD: normocephalic EYES: no conjunctival inje ction noted MOUTH/THROAT moist mucous membran es , no tonsillar edema , no exudates NECK supple , trachea mid line HEART: regular rate and rhy thm LUNGS: Normal: clear to aus cultation, No respiratory distress, no accessory muscle use, No rales, No rhonchi, No wheezing EXTREMITIES: no edema PSYCHIATRIC: Affect normal, Inter active, conversant SKIN/Wound warm, dry, No rash o n visible skin EARS/NOSE: tympanic membranes c lear without erythema or bulging LYMPHATIC no cervical adenopat hy
--- OUTSIDE RECORDS SUMMARY | 2024-09-15 14:23 | XMS_ITS | CONTINUITY OF CARE DOCUMENT ---
Author Name aarti broussard Address Unknown Organization [facility] Address [address] [place] [address] [address] [place] [address] Phone [phone] Care Team Providers Care Naphthalene Operator Name Role Phone MARIANO DOUGLASS MD Unavailable [phone] MARIANO DOUGLASS MD Unavailable [phone] INSURANCE PROVIDERS Payer name Policy type / Coverage type Brandt red republican ID [facility] Other [id number]
--- OUTSIDE RECORDS SUMMARY | 2024-09-15 14:23 | XMS_ITS | Patient Health Record ---
Author Organization [facility] Address [address] [address] [place] [address] Care Team Providers Care Chief Arson Division Name Role Phone Arjun Anthony DO Primary Care Provider Emily Hansen Unavailable [phone] Alejandrina Farr Unavailable [phone] Jerry Burt Unavailable [phone] Lucía Guevara Unavailable [phone] Mark Shukal Unavailable Allergies Allergen (clinical drug ingredient) Drug/Non Drug Allergy documented on EMR Reaction Allergy Type Onset Date Status Substance with sulfonamide structure and antibacterial mechanism of action (substance) Sulfa Antibiotics Unknown Drug Allergy Active Results Component Value Reference Range Notes Urinalysis Reviewed date:04/06/2024 06:44:42 PM Interpretation:Abnormal Performing Lab: Notes/Report: Abnormal REVA 2+ 125 NEG - NEG reva/ul NIT NEG NEG - NEG URO NEG 0.2 NORM - NORM mg/dl PRO NEG NEG - NEG mg/dl pH 5.5 5 - 7.01 BLO NEG NEG - NEG Ruben/ul SG 1.015 1.000 - 1.010 KET NEG NEG - NEG mg/dl MARTHA NEG NEG - NEG mg/dl GLU NEG NEG - NEG mg/dl *Urine Cx [id number] Reviewed date:04/08/2024 05:35:39 PM Interpretation:Positive Performing Lab:Ritika Christianson, [address] [facility], [place], Phone - [phone], Director - Bruce Notes/Report: Urine Culture, Routine Final report Result 1 Klebsiella pneumoniae Cefazolin <=4 ug/mL Cefazolin with an BILLY <=16 predicts susceptibility to the oral agents cefaclor, cefdinir, cefpodoxime, cefprozil, cefuroxime, cephalexin, and loracarbef when used for therapy of uncomplicated urinary tract infections due to E. coli, Klebsiella pneumoniae, and Proteus mirabilis. 25,000-50,000 colony forming units per mL Antimicrobial Susceptibility S = Susceptible; I = Intermediate; R = Resistant P = Positive; N = Negative MICS are expressed in micrograms per mL Antibiotic RSLT#1 RSLT#2 RSLT#3 RSLT#4 Amoxicillin/Clavulanic Acid S Ampicillin R Cefepime S Ceftriaxone S Cefuroxime S Ciprofloxacin S Ertapenem S Gentamicin S Imipenem S Levofloxacin S Meropenem S Nitrofurantoin R Piperacillin/Tazobactam S Tetracycline S Tobramycin S Trimethoprim/Sulfa S XR Chest PA/Lat Reviewed date:05/28/2024 04:09:09 AM Interpretation: Performing Lab: Notes/Report: ECG Reviewed date:05/28/2024 04:44:01 AM Interpretation: Performing Lab: Notes/Report: Urinalysis Reviewed date:06/16/2024 02:06:17 PM Interpretation:Abnormal Performing [...] - NEG - NEG mg/dl *Urine Cx [id number] Reviewed date:06/20/2024 12:22:21 PM Interpretation: Performing Lab:[facility], [address] [place] [address], [place], Phone - [phone], Director - Bruce Notes/Report: Urine Culture, Routine [...] S Tetracycline I Tobramycin S Trimethoprim/Sulfa S XR Chest PA/Lat Reviewed date:05/29/2024 03:02:14 PM Interpretation:need prelim read Performing Lab: Notes/Report: NAME: RIDGE ROMERO, , : 1950, ACCESSION NUMBER: [id number] HISTORY: Chest pain. TECHNIQUE: Two views of the chest. COMPARISON: 2020. FINDINGS: The cardiac silhouette is stable. The patient is status post CABG. The lungs are clear without infiltrate or effusion. There is no pneumothorax. The osseous structures are unremarkable. IMPRESSION: No acute lung disease. Electronically Signed by: [facility] Report NAME: RIDGE ROMERO, , : 1950, ACCESSION NUMBER: [id number] Report HISTORY: Chest pain. Report TECHNIQUE: Two views of the chest. Report COMPARISON: 2020. Report FINDINGS: The cardiac silhouette is stable. The patient is status post CABG. The lungs are Report clear without infiltrate or effusion. There is no pneumothorax. The osseous structures are Report unremarkable. Report IMPRESSION: No acute lung disease. Reason For Referral No Information Medications Medication SIG (Take, Route, Frequency, Duration) Notes Start Date End Date Status Fluticasone Propionate 50 MCG/ACT Nasal for 30 Days Active Meclizine HCl Active Myrbetriq Active Levothyroxine Sodium Active Atorvastatin Calcium Active Citalopram Hydrobromide Active Gabapentin Active Omeprazole Active Symbicort Active HYDROcodone-Acetaminophen Active Problems Problem Type SNOMED Code ICD Code Onset Dates Problem Status W/U Status Risk Notes Problem [id number] Frequency of urination (R35.0) Active confirmed Problem 094850341 Chronic obstructive pulmonary disease with acute exacerbation (J44.1) Active confirmed Problem 978202184 Seasonal allergi c rhinitis, unspecified trigger (J30.2) Active confirmed Vital Signs Heart Rate 85 /min 06/16/2024 Temperature 98.1 degrees Fahrenheit 06/16/2024 Respiratory Rate 20 /min 06/16/2024 Blood pressure diastolic 64 mm Hg 06/16/2024 Oximetry 98 % 06/16/2024 Weight-kg 108.86 kg 06/16/2024 Height 65 in 06/16/2024 Blood pressure systolic 109 mm Hg 06/16/2024 Weight 240 lbs 06/16/2024 BMI 39.93 kg/m2 06/16/2024 Encounters Encounter Location Date Provider Diagnosis [facility] [address] [place] [id number] 02/15/2024 Lucía Guevara Seasonal allergic rhinitis, unspecified trigger J30.2 [facility] [address] 04/04/2024 Alejandrina Farr Acute urinary tract infection N39.0 [facility] [address] 05/16/2024 Jerry Burt Chronic obstructive pulmonary disease with acute exacerbation J44.1 [facility] [address] 05/26/2024 Christopher Shukla Acute pain of left shoulder M25.512 ; Chest pain, unspecified type R07.9 ; Costochondritis M94.0 and Post-viral cough syndrome R05.8 [facility] [address] 06/16/2024 Emily Burleson Dysuria R30.0 and Urinary tract infection in female N39.0 Assessments Encounter Date Diagnosis (ICD Code) Assessment Notes Treatment Notes Treatment Clinical Notes Section Notes 02/15/2024 Seasonal allergic rhinitis, unspecified trigger (ICD-10 - J30.2) No signs of infection noted. Recommend Azelastine as written and OTC antihistimines, such as Claritin, Zyrtec, or Opal, if desired. Pt will increase fluid intake. Follow up with PCP if persists. Go to ED if worsens. RTC PRN. Pt states understanding and agrees with plan. 04/04/2024 Acute urinary tract infection (ICD-10 - N39.0) You have symptoms of a urinary tract infection. Drink plenty of fluids. Get plenty of rest. Decrease caffeine and alcohol use. Your urine was sent out for a urine culture and we will call you in 3-5 days with the results. Over the counter Tylenol every 4-6 hours or Ibuprofen every 6-8 hours as directed as needed for pain or fever. If you develop worsening symptoms including increased pain, difficulty urinating, unable to move your bowel or urinate, pelvic pain, back pain or fever go to the nearest Emergency Department. We recommend you receive follow up care with your Primary Care Physician to reassess your condition within the next (2) days or sooner if signs or symptoms persist or worsen or as needed. You must understand that you have received an Urgent Care treatment only and that you may be released before all of your medical problems are known or treated. You, the patient, will arrange for follow up care as instructed. , Urinary Tract Infection (UTI) in Women: Care Instructions material was published 05/16/2024 Chronic obstructive pulmonary disease with acute [...] ++++ Salt water nasal sprays such as Gaston or Richardson can be used to help moisten your [...] frequently or use an alcohol based hand strip winder to disinfect hands. ++++ It is common to have bodyaches/chills /sweats/and low grade fevers during the first 3 [...] and agrees with above treatment and plan. 05/26/2024 Acute pain of left shoulder (ICD-10 [...] published, Shoulder Stretches: Exercises material was published [facility]: [phone] [place] [employer] Liability Director: [phone], Rest your shoulder as directed. Ice or [...] published, Shoulder Stretches: Exercises material was published [facility]: [phone] [place] [employer] Product Liability Director: [phone], Shoulder Pain: Care Instructions material was published [...] evident by increase in pain upon palpation. 06/16/2024 Dysuria (ICD-10 - R30.0) 06/16/2024 Urinary tract infection in female (ICD-10 - N39.0) Zenon reveiwed CRCL: 49.47 on 05/26/2024 Urine culture at on 03/2024 susceptible to Cipro positive Klesiella 05/26/2024 Costochondritis (ICD-10 - M94.0) 05/26/2024 Post-viral cough syndrome (ICD-10 - R05.8) 02/15/2024 Other Access your visit summary and after-visit care instructions via our online Patient Portal by visiting [email or web address]. Smoking is exceedingly harmful to your heart and lung health. Please call [phone] or visit [email or web address] to help quit, and improve your termination clerk health. The home is the most common [...] you can obtain one by: a) Calling [phone] or b) Going to [email or web address] 04/04/2024 Other Access your visit summary and after-visit care instructions via our online Patient Portal by visiting [email or web address]. Smoking is exceedingly harmful to your heart and lung health. Please call [phone] or visit [email or web address] to help quit, and improve your penitentiary [...] you can obtain one by: a) Calling [phone] or b) Going to [email or web address] 05/26/2024 Other Access your visit summary and after-visit care instructions via our online Patient Portal by visiting [email or web address]. Smoking is exceedingly harmful to your heart and lung health. Please call [phone] or visit [email or web address] to help quit, and improve your termination clerk health. The home is the most common [...] you can obtain one by: a) Calling [phone] or b) Going to [email or web address] [email or web address]/ 06/16/2024 Other Access your visit summary and after-visit care instructions via our online Patient Portal by visiting [email or web address]. Please follow up with your primary care provider if any other concerns: If you do not have a primary care provider you can obtain one by: a) Calling [phone] or b) Going to [email or web address] pcp/ Plan Of Treatment No Information Insurance Providers Payer Name Payer Address Payer Phone Subscriber Number Group Number Insured Name Patient Relationship to Insured Coverage Start Date Coverage End Date [employer] [address] [address] [place] [address] [id number] RIDGE ROMERO Self - patient is the insured Medical (General) History Medical History History ICD Code High cholesterol E78.00 STAGE 3B KIDNEY DISEASE HYPOTHYROID COPD HEART DISEASE
--- NOTE | 2024-09-16 12:57 | ED_ITS ---
HPI - Female Genitourinary General Chief complaint: Urogenital-Female Stated complaint: back pain Time Seen by Provider: 09/15/24 14:00 Source: patient, family, RN notes reviewed and old records reviewed Mode of arrival: ambulatory Limitations: no limitations History of Present Illness HPI Narrative: 73 year old female ambulatory with walker accompanied by spouse presents to express care with complaints of low back pain after twisting back getting off of toilet last night. Patient reports that just finished AZO for UTI symptoms 2 days ago. Patient reports that she was not seen or treated with antibiotic. Svitlana duque reports hostory of spinal stenois and is on Hydrocodone for management of chronic back pain Patient reports that she has no fever or any burning with urination, has urgency and frequency of urination. MD elicited complaint: UTI and other (low back pain) Pertinent past history: other (previous UTI's, stage 3 kidney disease, spinal s tenosis) Onset (ago): day(s) (pain increased since last night) Location of symptoms: low back Severity: moderate Severity scale (1-10): 6 Quality of pain: sharp Consistency: constant Vaginal discharge: none Vaginal bleeding: none Urinary symptoms: Urgency and Frequency Treatment prior to arrival: other (took last dose od AZO 2 days ago) Related Data Home Medications ?Medication ?Instructions ?Recorded ?Confirmed ?Last Taken ?Type atorvastatin 40 mg tablet 80 mg PO DAILY 11/05/20 09/15/24 Unknown History citalopram 20 mg tablet 20 mg PO DAILY 11/05/20 12/18/21 Unknown History hydrocodone 7.5 mg-acetaminophen 1 tablet PO Q6H PRN Back Pain 11/05/20 12/18/21 Unknown History 325 mg tablet levothyroxine 112 mcg tablet 200 mcg PO DAILY 11/05/20 09/15/24 Unknown History (Synthroid) conjugated estrogens 0.625 mg/gram 0.625 mg vaginal DAILY 12/18/21 12/18/21 Unknown History vaginal cream (Premarin) gabapentin 300 mg capsule 300 mg PO BID 12/18/21 12/18/21 Unknown History gabapentin 600 mg tablet 600 mg PO HS 12/18/21 09/15/24 Unknown History mirabegron 50 mg tablet,extended 50 mg PO DAILY 12/18/21 12/18/21 Unknown History release 24 hr (Myrbetriq) omeprazole 20 mg capsule,delayed 20 mg PO DAILY 12/18/21 12/18/21 Unknown History release atorvastatin 80 mg tablet mg 09/15/24 Unknown History fluticasone fur. 100 mcg-umeclid inhalation 09/15/24 Unknown History 62.5 mcg-vilant 25 mcg inhalat.powder (Trelegy Ellipta) fluticasone propionate 50 intranasal 09/15/24 Unknown History mcg/actuation nasal spray,suspension hydroxychloroquine 200 mg tablet mg PO 09/15/24 Unknown History levothyroxine 200 mcg tablet mcg 09/15/24 Unknown History losartan 50 mg tablet mg 09/15/24 Unknown History meclizine 25 mg tablet mg 09/15/24 Unknown History Allergies Allergy/AdvReac Type Severity Reaction Status Date / Time Sulfa (Sulfonamide Allergy Unknown Verified 09/15/24 13:29 Antibiotics) Review of Systems Review of Systems: CONSTITUTIONAL: Denies fever, chills, or sweats. CARDIOVASCULAR: Denies chest pain, palpitations, or edema. RESPIRATORY: Denies cough or dyspnea. GASTROINTESTINAL: Denies abdominal pain, nausea, vomiting, or diarrhea. GENITOURINARY: Reports no dysuria,+ frequency, urgency. Denies flank pain or hematuria. SKIN: Denies rash or itching. MUSCULOSKELETAL: Reports low back pain or myalgia. Denies CVA tenderness also has history of chronic back pain spinal stenoisi NEUROLOGIC: Denies headache All systems reviewed & are unremarkable except as noted in HPI and below PMFSH Past Medical History Medical History (Updated 09/16/24 @ 19:58 by Nae Magallanes NP) Neuropathy Shoulder fracture, right Hyperlipidemia Hypertension Arthritis Spinal stenosis Osteoporosis GERD (gastroesophageal reflux disease) Stage 3 chronic kidney disease Hip fracture, right Obesity Hypothyroidism Hard of hearing Asthma Surgical History Surgical History (Updated 09/16/24 @ 19:47 by Nae Magallanes NP) History of total right hip replacement History of cholecystectomy History of knee surgery Bilateral total knee Hx of CABG Family History Family History (Updated 11/05/20 @ 15:02 by DEANA Go) Father Unknown family medical history Mother Alzheimers disease Social History Social History (Updated 09/16/24 @ 19:53 by Nae Magallanes NP) Smoking status: Former smoker Tobacco type: cigarettes Second hand tobacco smoke exposure: No Smoking end date: 05/25/90 Alcohol intake: current Substance use: never Substance use type: does not use Other substance usage details: hydrocodone for chronic pain to back Living arrangements: with family Occupation/Education: retired Gender identity (if verbalized by the patient): Female Sexual Orientation (if Verbalized by the Patient): Straight or Heterosexual Comments At time of signature, agree with nursing past medical, surgical, social and family history. There is no relevant family history pertinent to the presenting complaint Exam Narrative: GENERAL: Chronic ill-appearing, well-nourished,obese and in no acute distress. HEAD: Normocephalic, atraumatic. NECK: Supple.no lymphadenopathy CHEST: Clear to auscultation. No respiratory distress.SAO2 94% on room air, uses oxygen as needed since COVID HEART: Regular rate and rhythm. No murmur heard. Normal peripheral pulses. ABDOMEN: Soft, nontender, nondistended, normal active bowel sounds. No CVA tenderness, urinary urgency and frequency with low back pain EXTREMITIES: Normal range of motion. No edema.chronic back pain and arthritis uses walker for assistance with ambulation. SKIN: Warm, dry, no rash. NEURO: No focal deficits. Alert and oriented x3. Course Course Emergency Course: Patient is aware of diagnosis, understands and agrees to treatment plan.? Anticipatory guidance given.? Patient agrees to follow-up as directed and is aware of reasons to seek care at the emergency department. Portions of this record may have been created with voice recognition software Level of Care: Express Care Visit Vital Signs Vital signs: Vital Signs Temperature 36.9 C 09/15/24 13:32 Pulse Rate 62 09/15/24 13:32 Respiratory Rate 20 09/15/24 13:32 Blood Pressure 139/78 09/15/24 13:32 Pulse Oximetry 94 09/15/24 13:32 Oxygen Delivery Room Air 09/15/24 13:32 Temperature 36.9 C 09/15/24 13:32 Pulse Rate 62 09/15/24 13:32 Respiratory Rate 20 09/15/24 13:32 Blood Pressure 139/78 09/15/24 13:32 Pulse Oximetry 94 09/15/24 13:32 Oxygen Delivery Room Air 09/15/24 13:32 MDM - Female Genitourinary MDM Narrative Medical decision making narrative: Exam findings and UA show no acute concerns or changes; patient is non-toxic appearing and is in no distress.? Patient is appropriate for outpatient treatment and follow-up. Differential Diagnosis Differential diagnosis: Likely urinary tract infection, cystitis and other (frequent UTI's, chronic kidney disease, chronic low back pain) Medical Records Attestation: I reviewed the patient's medical records. Lab Data Attestation: I reviewed the patient's lab results. Lab results narrative: see urine dip reports: reviewed with positive blood,nitrite and leukocytes Labs: Lab Results 09/15/24 Range/Units 13:59 POC Urine Color Yellow POC Urine Clarity Cloudy POC Urine pH 7.0 POC Ur Specif [place] 1.020 POC Urine Protein 1+ (Negative) POC Ur Glucose (UA) Negative (Negative) POC Urine Ketones Negative (Negative) POC Urine Blood 1+ (Negative) POC Urine Nitrite Positive (Negative) POC Urine Bilirubin Negative (Negative) POC Urine Urobilinogen 0.2 POC U Leukocyte Esteras 3+ (Negative) reviewed Critical Care Time Critical Care Time Critical Care Time: No Discharge Plan Discharge Clinical Impression: Urinary tract infection Qualifiers: Urinary tract infection type: site unspecified Hematuria presence: with hematuria Qualified Code(s): N39.0 - Urinary tract infection, site not specified Back pain Qualifiers: Back pain location: low back pain Chronicity: unspecified Back pain laterality: bilateral Sciatica presence: without sciatica Qualified Code(s): M54.50 - Low back pain, unspecified Patient Disposition: Home Condition: Stable Instructions: Antibiotic Form, Urinary Tract Infection in Women (ED), Back Pain (ED) Additional Instructions: Increase fluids especially cranberry juice and water Avoid caffeine and carbonated beverages Antibiotic as directed Tylenol/ibuprofen for pain or fever Follow-up with her primary care provider if further problems or concerns Recheck if you have fever over 101, nausea and vomiting. Patient reports chronic history of back pain Pain medication as prescribed which patient takes routinely for chronic back pain Muscle relaxant as prescribed do not drive while taking If your symptoms persist, change or worsen significantly before you can contact your personal physician then please, without delay, go to the emergency department for further evaluation. Follow-up with PCP in 7-10 days or sooner if needed Follow up with PCP soon in regards to your blood pressure which is elevated above threshold for referral. Blood pressure above 120/80 may indicate pre- hypertension. 139/78 Patient Language: Faroese Prescriptions: New cefadroxil 500 mg capsule 500 mg PO BID Qty: 14 0RF cyclobenzaprine 5 mg tablet 5 mg PO TID PRN (Reason: muscle spasm) Qty: 20 0RF Rx Instructions: can not drive while taking this medication No Action losartan 50 mg tablet atorvastatin 80 mg tablet meclizine 25 mg tablet levothyroxine 200 mcg tablet hydroxychloroquine 200 mg tablet PO fluticasone propionate 50 mcg/actuation spray,suspension INTRANASAL Trelegy Ellipta 100-62.5-25 mcg blister with device INHALATION hydrocodone-acetaminophen 7.5-325 mg Tablet 1 tablet PO Q6H PRN (Reason: Back Pain) atorvastatin 40 mg Tablet 80 mg PO DAILY citalopram 20 mg Tablet 20 mg PO DAILY levothyroxine [Synthroid] 112 mcg Tablet 200 mcg PO DAILY gabapentin 600 mg Tablet 600 mg PO HS Premarin 0.625 mg/gram Cream 0.625 mg VAGINAL DAILY Rx Instructions: off 5 days; repeat cycle gabapentin 300 mg Capsule 300 mg PO BID omeprazole 20 mg Capsule,Delayed Release(Dr/Ec) 20 mg PO DAILY Myrbetriq 50 mg Tablet Extended Release 24 Hr 50 mg PO DAILY Follow-up/Referrals: UNKNOWN,DOCTOR [Primary Care Provider] - Time of Disposition: 14:45 Quality Sumi Coma Scale Eyes: Open Verbal: Oriented and Alert Motor: Follows Commands [place] Coma Total Score: 15
== END 2024-09-15 14:45 | disposition home or self-care (01) ==
PROVIDERS: Emergency Provider Registered Nurse
DX: N39.0 Urinary tract infection, site not specified (principal); M54.50 Low back pain, unspecified; I12.9 Hypertensive chronic kidney disease with stage 1 through stage 4 chronic kidney disease, or unspecified chronic kidney disease; N18.30 Chronic kidney disease, stage 3 unspecified; E03.9 Hypothyroidism, unspecified; Z79.891 Long term (current) use of opiate analgesic; Z79.899 Other long term (current) drug therapy; Z87.891 Personal history of nicotine dependence
CPT/HCPCS: 81003; 87077; 87086; 87186; 99213; G0463